=== PATIENT | male | born 1970 | race Caucasian/White ===

== ENCOUNTER 2017-05-21 22:38 | Inpatient (IN) | payer OTHER ==
--- NOTE | 2017-05-21 23:38 | HP ---
COWS - Scale Resting Pulse: 0= [place] 80 or Below Sweatin= Chills/Flushing Restless Observation: 1= Difficult to Sit Still Pupil Size: 0= Normal to Room Light Bone or Joint Aches: 2= Severe Diffuse Aches Runny Nose/ Eye Tearin= Runny Nose/Eyes GI Upset > 30mins: 2= Nausea/Diarrhea Tremor Observation: 2= Slight Tremor Visible Yawning Observation: 1= 1-2x During Session Anxiety or Irritability: 2=Irritable/Anxious Goose Flesh Skin: 0=Smooth Skin COWS Score: 13 CIWA Score - CIWA Score Nausea/Vomitin-Mild Nausea/No Vomiting Muscle Tremors: 4-Moderate,w/Arms Extend Anxiety: 4-Mod. Anxious/Guarded Agitation: 4-Moderately Restless Paroxysmal Sweats: 1-Minimal Palms Moist Orientation: 0-Oriented Tacttile Disturbances: 0-None Auditory Disturbances: 0-None Visual Disturbances: 0-None Headache: 0-None Present CIWA-Ar Total Score: 14 Admission [facility] - HPI Chief Complaint: withdrawal sx patient is on suboxone 8-2 mg tid x 3 years, last dose 05/18/17 Allergies/Adverse Reactions: Allergies Allergy/AdvReac Type Severity Reaction Status Date / Time No Known Allergies Allergy Verified 03/06/15 08:13 History of Present Illness: 47 years old male with long history of opiate klonopin nicotine dependence has hypertension, cellulitis of left hand treated with penicillin 500 mg tid x 10 days, 05/21/17 is 4th day, bipolar ii treated with gabapentin, paxil, is admitted to detox Exam Limitations: No Limitations - Ebola screening Have you traveled outside of the country in the last 21 days: No (N) Have you had contact with anyone from an Ebola affected area: No Do you have a fever: No - Review of Systems Constitutional: Changes in sleep, Weight Stable EENT: reports: No Symptoms Reported Respiratory: reports: No Symptoms reported Cardiac: reports: No Symptoms Reported GI: reports: Nausea, Poor Fluid Intake, Abdominal cramping : reports: No Symptoms Reported Musculoskeletal: reports: Back Pain, Joint Pain, Muscle Pain, Neck Pain Integumentary: reports: Change in Color, Erythema (left hand), Other ( cellulitits) Neuro: reports: Tremors Endocrine: reports: No Symptoms Reported Hematology: reports: No Symptoms Reported Psychiatric: reports: Judgement Intact, Orientated x3, Depressed Other Systems: Reviewed and Negative Patient History - Patient Medical History Hx Anemia: No Hx Asthma: No Hx Chronic Obstructive Pulmonary Disease (COPD): No Hx Cancer: No Hx Cardiac Disorders: No Hx Congestive Heart Failure: No Hx Hypertension: Yes Hx Hypercholesterolemia: Yes Hx Pacemaker: No HX Cerebrovascular Accident: No Hx Seizures: No Hx Dementia: No Hx Diabetes: No Hx Gastrointestinal Disorders: No Hx Liver Disease: No Hx Genitourinary Disorders: No Hx Sexually Transmitted Disorders: No Hx Renal Disease (ESRD): No Hx Thyroid Disease: No Hx Human Immunodeficiency Virus (HIV): No Hx Hepatitis C: Yes Hx Depression: No Hx Suicide Attempt: Yes (2014 over dose) Hx Bipolar Disorder: Yes Hx Schizophrenia: No - Patient Surgical History Past Surgical History: No - PPD History Previous Implant?: Yes Documented Results: Negative w/o proof Implanted On Prior [facility] Admission?: No PPD to be Administered?: Yes - Smoking Cessation Smoking history: Current every day smoker Have you smoked in the past 12 months: Yes Aproximately how many cigarettes per day: 15 Cigars Per Day: 0 Hx Chewing Tobacco Use: No Initiated information on smoking cessation: Yes 'Breaking Loose' booklet given: 05/21/17 - Substance & Tx. History Hx Alcohol Use: No Hx Substance Use: Yes Substance Use Type: Cocaine, Marijuana, Opiates, Tranquilizers Hx Substance Use Treatment: Yes (2015) - Substances Abused Heroin Route: Injection Frequency: Daily Amount used: 4 bags Age of first use: 15 Date of Last Use: 05/21/17 klonopin Route: Oral Frequency: Daily Amount used: 6 mg Age of first use: 31 Date of Last Use: 05/21/17 Family Disease History - Family Disease History Family Disease History: Heart Disease: Father (), Other: Father, Brother (no contact) Admission Physical Exam [facility] - Physical General Appearance: Yes: Nourished, Appropriately Dressed, Mild Distress, Tremorous, Irritable, Sweating, Anxious HEENTM: Yes: Hearing grossly Normal, Normal ENT Inspection, Normocephalic, Normal Voice Respiratory: Yes: Chest Non-Tender, Lungs Clear, Normal Breath Sounds, No Respiratory Distress, No Accessory Muscle Use Neck: Yes: Supple, Trachea in good position Breast: Yes: Breasts Symetrical Cardiology: Yes: Regular Rhythm, Regular Rate, S1, S2 Abdominal: Yes: Non Tender, Soft Genitourinary: Yes: Within Normal Limits Back: Yes: Normal Inspection Musculoskeletal: Yes: full range of Motion, Gait Steady, Back pain, Muscle Pain Extremities: Yes: Normal Range of Motion, Non-Tender, Tremors, Swelling (left hand) Neurological: Yes: Fully Oriented, Alert, Motor Strength 5/5, Normal Response, Depressed Affect Integumentary: Yes: Warm, Track Fox Lymphatic: Yes: Within Normal Limits - Diagnostic (1) Cannabis dependence, uncomplicated Current Visit: Yes Status: Chronic (2) Cocaine dependence, uncomplicated Current Visit: Yes Status: Chronic (3) Opioid dependence with withdrawal Current Visit: Yes Status: Acute (4) Sedative, hypnotic or anxiolytic dependence with withdrawal, uncomplicated Current Visit: Yes Status: Acute (5) Hypertension Current Visit: Yes Status: Chronic Qualifiers: Hypertension type: essential hypertension Qualified Code(s): I10 - Essential (primary) hypertension (6) Cellulitis Current Visit: Yes Status: Acute Qualifiers: Site of cellulitis: extremity Site of cellulitis of extremity: upper extremity Laterality: left Qualified Code(s): L03.114 - Cellulitis of left upper limb (7) Nicotine dependence Current Visit: Yes Status: Acute Qualifiers: Nicotine product type: cigarettes Substance use status: in withdrawal Qualified Code(s): F17.213 - Nicotine dependence, cigarettes, with withdrawal (8) Hepatitis C Current Visit: Yes Status: Chronic Qualifiers: Viral hepatitis chronicity: carrier Qualified Code(s): B18.2 - Chronic viral hepatitis C Cleared for Admission [facility] - Detox or Rehab [facility] Level of Care: Medically Managed Detox Regimen/Protocol: Methadone/Valium Vital Signs - Vital Signs Vital Signs Refused: No Temperature: 98.2 F Temperature Source: Oral Pulse Rate: 64 Respiratory Rate: 18 Blood Pressure: 104/68 BP Location: Left Arm Blood Pressure Position: Sitting - Height Height: 6 ft 1 in - Weight Weight: 192 lb Weight Measurement Method: Standing Scale Body Mass Index (BMI): 25.3 - Bowel Function Bowel Movement: Yes Urine Drug Screen - Control Is Test Valid: Yes - Results Drug Screen Negative: No Urine Drug Screen Results: THC-Marijuana, JULIA-Cocaine, BZO-Benzodiazepines, OXY- Oxycodone
[2017-05-21 23:54] VITALS: BMI 25.3
[2017-05-21] MEDS ORDERED: guaiFENesin/D-METHORPHAN HB 10 ML UNIT-DOSE CUPS PO PRN (23:59)
[2017-05-21] MEDS ORDERED: MAGNESIUM HYDROX 2400MG/30ML ORAL SUSPENSION 30 ML CUP PO PRN (23:59)
[2017-05-21] MEDS ORDERED: METHADONE HCL 10 MG TABLET (FOR DETOX USE ONLY) PO ONE (23:59)
[2017-05-21] MEDS ORDERED: diazePAM 5 MG TABLET PO PRN (23:59)
[2017-05-21] MEDS ORDERED: LOPERAMIDE HCL 2 MG CAPSULE PO PRN (23:59)
[2017-05-21] MEDS ORDERED: MAGNESIUM CITRATE 300 ML BOTTLE PO PRN (23:59)
[2017-05-21] MEDS ORDERED: P-EPHED 60MG/TRIPROLIDI 2.5MG TABLET PO PRN (23:59)
[2017-05-21] MEDS ORDERED: IBUPROFEN 400 MG TABLET (FP) PO PRN (23:59)
[2017-05-21] MEDS ORDERED: MENTHOL/PHENOL 1 EACH UD MM PRN (23:59)
[2017-05-21] MEDS ORDERED: diphenhydrAMINE HCL 50 MG CAPSULE PO PRN (23:59)
[2017-05-21] MEDS ORDERED: ACETAMINOPHEN 325 MG TABLET (FP) PO PRN (23:59)
[2017-05-21] MEDS ORDERED: MAG HYDROX/AL HYDROX/SIMETH 30 ML UNIT-DOSE CUP PO PRN (23:59)
[2017-05-21] MEDS ORDERED: diazePAM 5 MG TABLET PO ONE (23:59)
[2017-05-22] MEDS ORDERED: diazePAM 5 MG TABLET PO ONE (01:40)
[2017-05-22] MEDS ORDERED: METHADONE HCL 10 MG TABLET (FOR DETOX USE ONLY) PO ONE ×4 (01:40→23:00)
[2017-05-22] MEDS: PENICILLIN V POTASSIUM 500 MG TABLET PO SCH ×4 (02:00→23:03)
[2017-05-22] MEDS: diazePAM 5 MG TABLET PO SCH ×3 (06:00→22:24)
[2017-05-22] MEDS: GABAPENTIN 300 MG CAPSULE (FP) PO SCH ×3 (06:53→22:24)
--- NOTE | 2017-05-22 10:31 | PN ---
[facility] CIWA - CIWA Score Nausea/Vomitin Muscle Tremors: 3 Anxiety: 3 Agitation: 3 Paroxysmal Sweats: 1-Minimal Palms Moist Orientation: 0-Oriented Tacttile Disturbances: 1-Very Mild Itch/Numbness Auditory Disturbances: 1-Very Mild Visual Disturbances: 1-Very Mild Sensitivity Headache: 2-Mild CIWA-Ar Total Score: 18 [facility] COWS - Scale Resting Pulse: 0= [place] 80 or Below Sweatin= Chills/Flushing Restless Observation: 3= Extraneous Movement Pupil Size: 1= Pupils >than Normal Bone or Joint Aches: 2= Severe Diffuse Aches Runny Nose/ Eye Tearin= Runny Nose/Eyes GI Upset > 30mins: 2= Nausea/Diarrhea Tremor Observation of Outstretched Hands: 2= Slight Tremor Visible Yawning Observation: 1= 1-2x During Session Anxiety or Irritability: 2=Irritable/Anxious Goose Flesh Skin: 0=Smooth Skin COWS Score: 16 [facility] Progress Note (SOAP) Subjective: ALERT,IRRITABLE,ANXIOUS,INTERRUPTED SLEEP,TREMOR,PAIN IN THE BODY,TOOTH,REDNESS LEFT ELBOW Objective: 05/22/17 10:28 05/22/17 10:29 Vital Signs Temperature 97.1 F L 05/22/17 06:15 Pulse Rate 51 L 05/22/17 06:15 Respiratory Rate 16 05/22/17 06:15 Blood Pressure 106/57 05/22/17 06:15 O2 Sat by Pulse Oximetry (%) Assessment: 05/22/17 10:29 EKG SINUS BRADYCARDIA 47/MIN NO CHEST PAIN,NO SOB,NO DIZZINESS LABS PENDING Plan: WITHDRAWAL SYMPTOM,CONTINUE DETOX
[2017-05-22] MEDS: METOPROLOL TARTRATE 50 MG TABLET (FP) PO SCH ×2 (10:41→22:24)
[2017-05-22] MEDS: PRENATAL VITAMINS W/ FOLIC ACID TABLET (FP) PO SCH (10:41)
[2017-05-22] MEDS: diazePAM 5 MG TABLET PO PRN ×2 (10:42→17:26)
[2017-05-22] MEDS: NICOTINE 21 MG/24 HOURS TOPICAL PATCH TD SCH (10:42)
[2017-05-22 15:11] LABS: URINE APPEARANCE SLCLOUDY; URINE BILIRUBIN NEGATIVE (NEGATIVE); URINE BLOOD NEGATIVE (NEGATIVE); URINE COLOR DKYELLOW; URINE GLUCOSE (UA) NEGATIVE (NEGATIVE); URINE KETONE NEGATIVE (NEGATIVE); URINE LEUK ESTERASE NEGATIVE (NEGATIVE); URINE NITRITE NEGATIVE (NEGATIVE); URINE PROTEIN NEGATIVE (NEGATIVE); URINE UROBILINOGEN 4.0 E.U/dl mg/dL (0.2-1.0)
--- NOTE | 2017-05-22 15:11 | CONSULT ---
[facility] Psychiatric Consult - Data Date of interview: 05/22/17 Admission source: [facility] Identifying data: Patient is approached,TWICE,at bedside for psychiatric interview.He refused.
[2017-05-22] MEDS: NICOTINE POLACRILEX 4 MG GUM BUC PRN (17:27)
--- NOTE | 2017-05-22 20:01 | EKG ---
Test Reason : Blood Pressure : / mmHG Vent. Rate : 047 BPM Atrial Rate : 047 BPM P-R Int : 168 ms QRS Dur : 096 ms QT Int : 422 ms P-R-T Axes : 059 039 039 degrees QTc Int : 373 ms SINUS BRADYCARDIA OTHERWISE NORMAL ECG WHEN COMPARED WITH ECG OF 23-APR-2011 13:39, VENT. RATE HAS DECREASED BY 24 BPM Confirmed by PADDY ELDRIDGE MD ([id number]) on 05/22/2017 8:00:38 PM Referred By: Confirmed By:PADDY ELDRIDGE MD
[2017-05-22] MEDS ORDERED: diazePAM 5 MG TABLET PO SCH (22:00)
[2017-05-22] MEDS: THIAMINE HCL 100 MG TABLET (FP) PO SCH (22:24)
[2017-05-22] MEDS: SULFAMETHOXAZOLE/TRIMETHOPRIM 800MG/160MG D.S. TABLET PO SCH (22:24)
[2017-05-23] MEDS: diazePAM 5 MG TABLET PO SCH ×3 (06:54→21:56)
[2017-05-23] MEDS: PENICILLIN V POTASSIUM 500 MG TABLET PO SCH ×3 (06:54→21:56)
[2017-05-23] MEDS: GABAPENTIN 300 MG CAPSULE (FP) PO SCH ×3 (06:54→21:55)
--- NOTE | 2017-05-23 09:25 | CONSULT ---
[facility] Psychiatric Consult - Data Date of interview: 05/23/17 Admission source: [facility] Identifying data: This is 47 years old male with no psychiatirc hospitalization history intoxicated with: Opiopids, Cannabis, Cocaine, Xanax and Nicotine Substance Abuse History: - Smoking Cessation. Smoking history: Current every day smoker. Have you smoked in the past 12 months: Yes. Aproximately how many cigarettes per day: 20. Cigars Per Day: 0. Hx Chewing Tobacco Use: No. Initiated information on smoking cessation: Yes. 'Breaking Loose' booklet given : 05/22/17. - Substance & Tx. History. Hx Alcohol Use: Yes. Hx Substance Use : Yes. Substance Use Type: Alcohol, Cocaine. Hx Substance Use Treatment: No. - Substances Abused. Alcohol. Route: Oral. Frequency: Daily. Amount used : vodka 2 pints, beer 2 of 40 oz. Age of first use: 31. Date of Last Use: . Cocaine. Route: Smoking. Frequency: Daily. Amount used: $100. Age of first use: 26. Date of Last Use: 05/21/17 Medical History: Cellulitis history, HepC+, HTN, Psychiatric History: pATIENTY REPORTS HIOSTORY OF DEPRESSION, REPORTS TAKING PRIOR TO ADMISSION: Paxil 10mg POQD Physical/Sexual Abuse/Trauma History: Denies Additional Comment: Paxil 10mg POQD Mental Status Exam - Mental Status Exam Alert and Oriented to: Person Cognitive Function: Fair Patient Appearance: Unkempt Mood: Sad Affect: Flat Patient Behavior: Sedated Speech Pattern: Delayed Voice Loudness: Mildly Soft/Quiet Thought Process: Circumstantial Thought Disorder: Being Controlled Hallucinations: Denies Suicidal Ideation: Denies Homicidal Ideation: Denies Insight/Judgement: Fair Sleep: Difficulty falling asleep Appetite: Fair Muscle strength/Tone: Mild Hypotonicity Gait/Station: Shuffling Additional Comments: Paxil 10mg POQD Psychiatric Findings - Problem List ([place] 1, 2,3) (1) Nicotine dependence Current Visit: Yes Status: Acute Qualifiers: Nicotine product type: cigarettes Substance use status: in withdrawal Qualified Code(s): F17.213 - Nicotine dependence, cigarettes, with withdrawal (2) Opioid dependence with withdrawal Current Visit: Yes Status: Acute (3) Sedative, hypnotic or anxiolytic dependence with withdrawal, uncomplicated Current Visit: Yes Status: Acute (4) Cannabis dependence, uncomplicated Current Visit: Yes Status: Chronic (5) Cocaine dependence, uncomplicated Current Visit: Yes Status: Chronic (6) Drug-induced mood disorder Current Visit: Yes Status: Acute - Initial Treatment Plan Initial Treatment Plan: Paxil 10mg POQD
[2017-05-23] MEDS: diazePAM 5 MG TABLET PO PRN ×2 (09:30→17:51)
[2017-05-23 09:49] LABS: MCH 29.5 pg (25.7-33.7); MCHC 33.8 g/dl (32.0-35.9); MEAN CELL VOLUME 87.3 fl (80-96); PLATELET COUNT 186 K/MM3 (134-434); RDW 14.1 % (11.9-15.9); WHITE BLOOD COUNT 7.1 K/mm3 (4.0-10.0)
[2017-05-23] MEDS ORDERED: METHADONE HCL 10 MG TABLET (FOR DETOX USE ONLY) PO SCH ×2 (10:00)
[2017-05-23] MEDS: METOPROLOL TARTRATE 50 MG TABLET (FP) PO SCH ×2 (11:01→21:56)
[2017-05-23] MEDS: PARoxetine HCL 10 MG TABLET (FP) PO SCH (11:01)
[2017-05-23] MEDS: SULFAMETHOXAZOLE/TRIMETHOPRIM 800MG/160MG D.S. TABLET PO SCH ×2 (11:01→21:56)
[2017-05-23] MEDS: PRENATAL VITAMINS W/ FOLIC ACID TABLET (FP) PO SCH (11:01)
[2017-05-23] MEDS: NICOTINE 21 MG/24 HOURS TOPICAL PATCH TD SCH (11:01)
[2017-05-23] MEDS: NICOTINE POLACRILEX 4 MG GUM BUC PRN ×2 (11:02→17:53)
[2017-05-23 11:11] LABS: ALBUMIN 3.3 g/dl (3.4-5.0); ALK PHOS 72 U/L (45-117); ANION GAP 6 (8-16); BILIRUBIN,TOTAL 0.4 mg/dL (0.2-1.0); CALCIUM 9.1 mg/dL (8.5-10.1); CO2 28 mmol/L (21-32); CREATININE 0.7 mg/dL (0.7-1.3); GLUCOSE,RANDOM 90 mg/dL (74-106); SGOT/AST 19 U/L (15-37); SGPT/ALT 30 U/L (12-78); TOT PROT 6.6 g/dl (6.4-8.2)
--- NOTE | 2017-05-23 12:04 | PN ---
[facility] CIWA - CIWA Score Nausea/Vomitin Muscle Tremors: 3 Anxiety: 3 Agitation: 2 Paroxysmal Sweats: 1-Minimal Palms Moist Orientation: 0-Oriented Tacttile Disturbances: 1-Very Mild Itch/Numbness Auditory Disturbances: 1-Very Mild Visual Disturbances: 1-Very Mild Sensitivity Headache: 2-Mild CIWA-Ar Total Score: 17 [facility] COWS - Scale Resting Pulse: 0= [place] 80 or Below Sweatin= Chills/Flushing Restless Observation: 3= Extraneous Movement Pupil Size: 1= Pupils >than Normal Bone or Joint Aches: 2= Severe Diffuse Aches Runny Nose/ Eye Tearin= Runny Nose/Eyes GI Upset > 30mins: 2= Nausea/Diarrhea Tremor Observation of Outstretched Hands: 2= Slight Tremor Visible Yawning Observation: 1= 1-2x During Session Anxiety or Irritability: 2=Irritable/Anxious Goose Flesh Skin: 0=Smooth Skin COWS Score: 16 S Progress Note (SOAP) Subjective: ALERT,IRRITABLE,ANXIOUS,INTERRUPTED SLEEP,TREMOR,PAIN IN THE BODY AND BACK Objective: 05/23/17 12:03 Vital Signs Temperature 97.7 F 05/23/17 10:21 Pulse Rate 63 05/23/17 10:21 Respiratory Rate 18 05/23/17 10:21 Blood Pressure 124/83 05/23/17 10:21 O2 Sat by Pulse Oximetry (%) Assessment: 05/23/17 12:03 WITHDRAWAL SYMPTOM Plan: CONTINUE DETOX
[2017-05-23] MEDS: THIAMINE HCL 100 MG TABLET (FP) PO SCH (21:56)
[2017-05-24] MEDS: diazePAM 5 MG TABLET PO PRN ×3 (05:27→18:49)
[2017-05-24] MEDS: GABAPENTIN 300 MG CAPSULE (FP) PO SCH ×3 (05:27→21:59)
[2017-05-24] MEDS: PENICILLIN V POTASSIUM 500 MG TABLET PO SCH ×3 (05:27→21:59)
[2017-05-24] MEDS ORDERED: METHADONE HCL 5 MG TABLET (FOR DETOX USE ONLY) PO SCH (10:00)
[2017-05-24] MEDS ORDERED: diazePAM 5 MG TABLET PO SCH (10:00)
[2017-05-24] MEDS: diazePAM 5 MG TABLET PO SCH ×2 (10:14→21:59)
[2017-05-24] MEDS: NICOTINE 21 MG/24 HOURS TOPICAL PATCH TD SCH (10:15)
[2017-05-24] MEDS: SULFAMETHOXAZOLE/TRIMETHOPRIM 800MG/160MG D.S. TABLET PO SCH ×2 (10:15→21:59)
[2017-05-24] MEDS: METHADONE HCL 5 MG TABLET (FOR DETOX USE ONLY) PO SCH (10:15)
[2017-05-24] MEDS: PARoxetine HCL 10 MG TABLET (FP) PO SCH (10:15)
[2017-05-24] MEDS: PRENATAL VITAMINS W/ FOLIC ACID TABLET (FP) PO SCH (10:15)
[2017-05-24] MEDS: METOPROLOL TARTRATE 50 MG TABLET (FP) PO SCH ×2 (10:15→21:59)
--- NOTE | 2017-05-24 10:49 | PN ---
S Progress Note (SOAP) Subjective: ALERT,IRRITABLE,ANXIOUS,INTERRUPTED SLEEP,TREMOR Objective: 05/24/17 10:47 Vital Signs Temperature 98.1 F 05/24/17 10:00 Pulse Rate 53 L 05/24/17 10:00 Respiratory Rate 18 05/24/17 10:00 Blood Pressure 129/86 05/24/17 10:00 O2 Sat by Pulse Oximetry (%) 05/24/17 10:47 Laboratory Last Values WBC 7.1 K/mm3 (4.0-10.0) 05/23/17 07:00 RBC 4.97 M/mm3 (4.00-5.60) 05/23/17 07:00 Hgb 14.7 GM/dL (11.7-16.9) 05/23/17 07:00 Hct 43.4 % (35.4-49) 05/23/17 07:00 MCV 87.3 fl (80-96) 05/23/17 07:00 MCH 29.5 pg (25.7-33.7) 05/23/17 07:00 MCHC 33.8 g/dl (32.0-35.9) 05/23/17 07:00 RDW 14.1 % (11.9-15.9) 05/23/17 07:00 Plt Count 186 K/MM3 (134-434) 05/23/17 07:00 MPV 10.0 fl (7.5-11.1) 05/23/17 07:00 Sodium 142 mmol/L (136-145) 05/23/17 07:00 Potassium 4.3 mmol/L (3.5-5.1) 05/23/17 07:00 Chloride 108 mmol/L (98-107) H 05/23/17 07:00 Carbon Dioxide 28 mmol/L (21-32) 05/23/17 07:00 Anion Gap 6 (8-16) L 05/23/17 07:00 BUN 9 mg/dL (7-18) 05/23/17 07:00 Creatinine 0.7 mg/dL (0.7-1.3) 05/23/17 07:00 Creat Clearance w eGFR > 60 (>60) 05/23/17 07:00 Random Glucose 90 mg/dL (74-106) 05/23/17 07:00 Calcium 9.1 mg/dL (8.5-10.1) 05/23/17 07:00 Total Bilirubin 0.4 mg/dL (0.2-1.0) 05/23/17 07:00 AST 19 U/L (15-37) 05/23/17 07:00 ALT 30 U/L (12-78) 05/23/17 07:00 Alkaline Phosphatase 72 U/L (45-117) 05/23/17 07:00 Total Protein 6.6 g/dl (6.4-8.2) 05/23/17 07:00 Albumin 3.3 g/dl (3.4-5.0) L 05/23/17 07:00 Urine Color Dkyellow 05/22/17 11:15 Urine Appearance Slcloudy 05/22/17 11:15 Urine pH 5.0 (5.0-8.0) 05/22/17 11:15 Ur Specific [place] 1.020 (1.005-1.025) 05/22/17 11:15 Urine Protein Negative (NEGATIVE) 05/22/17 11:15 Urine Glucose (UA) Negative (NEGATIVE) 05/22/17 11:15 Urine Ketones Negative (NEGATIVE) 05/22/17 11:15 Urine Blood Negative (NEGATIVE) 05/22/17 11:15 Urine Nitrite Negative (NEGATIVE) 05/22/17 11:15 Urine Bilirubin Negative (NEGATIVE) 05/22/17 11:15 Urine Urobilinogen 4.0 e.u/dl mg/dL (0.2-1.0) 05/22/17 11:15 Ur Leukocyte Esterase Negative (NEGATIVE) 05/22/17 11:15 RPR Titer Nonreactive (NONREACTIVE) 05/23/17 07:00 Assessment: 05/24/17 10:47 WITHDRAWAL SYMPTOM Plan: CONTINUE DETOX
[2017-05-24] MEDS: NICOTINE POLACRILEX 4 MG GUM BUC PRN (12:31)
[2017-05-24] MEDS: THIAMINE HCL 100 MG TABLET (FP) PO SCH (21:59)
[2017-05-25] MEDS: GABAPENTIN 300 MG CAPSULE (FP) PO SCH (05:28)
[2017-05-25] MEDS: PENICILLIN V POTASSIUM 500 MG TABLET PO SCH (07:35)
--- NOTE | 2017-05-25 08:31 | PN ---
[facility] Progress Note (SOAP) Subjective: ALERT,IRRITABLE,ANXIOUS,INTERRUPTED SLEEP,PAIN IN THE BODY Objective: 05/25/17 08:30 Vital Signs Temperature 97.9 F 05/25/17 06:48 Pulse Rate 53 L 05/25/17 06:48 Respiratory Rate 16 05/25/17 06:48 Blood Pressure 113/51 05/25/17 06:48 O2 Sat by Pulse Oximetry (%) Assessment: 05/25/17 08:30 WITHDRAWAL SYMPTOM Plan: CONTINUE DETOX
--- NOTE | 2017-05-25 08:33 | PN ---
[facility] Progress Note Note: PATIENT DID NOT WANT TO COMPLETE TREATMENT DUE TO PERSONAL PROBLEM,SEEN BY COUNSELOR,GUILLAUME BAUTISTA
--- NOTE | 2017-05-25 08:39 | DS ---
[facility] Detox Discharge Summary Admission Date: 05/21/17 Discharge Date: 05/25/17 - History Present History: Cannabis Dependence, Cocaine Dependence, Opioid Dependence, Sedative Dependence Additional Comments: PATIENT DID NOT WANT TO COMPLETE TREATMENT DUE TO PERSONAL PROBLEM,SIGNED RELEASE AMA,SEEN BY COUNSELOR HAS MEDICATIONS AT HOME Pertinent Past History: HYPERTENSION CELLULITIS LEFT ELBOW NICOTINE DEPENDENCE DENTAL CAVITY - Physical Exam Results Vital Signs: Vital Signs Temperature 97.9 F 05/25/17 06:48 Pulse Rate 53 L 05/25/17 06:48 Respiratory Rate 16 05/25/17 06:48 Blood Pressure 113/51 05/25/17 06:48 O2 Sat by Pulse Oximetry (%) Pertinent Admission Physical Exam Findings: WITHDRAWAL SYMPTOM - Medication Discharge Medications: Ambulatory Orders Paroxetine HCl [Paxil] 10 mg PO DAILY 03/06/15 Metoprolol ER-Hctz 25-12.5 mg 50 mg PO BID 09/28/16 Paroxetine HCl [Paxil -] 10 mg PO DAILY #30 tablet 05/23/17 - Diagnosis (1) Cellulitis Current Visit: Yes Status: Acute Qualifiers: Site of cellulitis: extremity Site of cellulitis of extremity: upper extremity Laterality: left Qualified Code(s): L03.114 - Cellulitis of left upper limb (2) Drug-induced mood disorder Current Visit: Yes Status: Acute (3) Nicotine dependence Current Visit: Yes Status: Acute Qualifiers: Nicotine product type: cigarettes Substance use status: in withdrawal Qualified Code(s): F17.213 - Nicotine dependence, cigarettes, with withdrawal (4) Opioid dependence with withdrawal Current Visit: Yes Status: Acute (5) Sedative, hypnotic or anxiolytic dependence with withdrawal, uncomplicated Current Visit: Yes Status: Acute (6) Cannabis dependence, uncomplicated Current Visit: Yes Status: Chronic (7) Cocaine dependence, uncomplicated Current Visit: Yes Status: Chronic (8) Hepatitis C Current Visit: Yes Status: Chronic Qualifiers: Viral hepatitis chronicity: carrier Qualified Code(s): B18.2 - Chronic viral hepatitis C (9) Hypertension Current Visit: Yes Status: Chronic Qualifiers: Hypertension type: essential hypertension Qualified Code(s): I10 - Essential (primary) hypertension (10) Toothache Current Visit: No Status: Acute (11) Dental cavity Current Visit: Yes Status: Acute - AMA Did Patient Leave Against Medical Advice: Yes
[2017-05-25] MEDS: METHADONE HCL 5 MG TABLET (FOR DETOX USE ONLY) PO SCH (09:12)
[2017-05-25] MEDS: SULFAMETHOXAZOLE/TRIMETHOPRIM 800MG/160MG D.S. TABLET PO SCH (09:13)
[2017-05-25] MEDS: diazePAM 5 MG TABLET PO SCH (09:13)
[2017-05-25] MEDS: PARoxetine HCL 10 MG TABLET (FP) PO SCH (09:13)
[2017-05-25] MEDS: PRENATAL VITAMINS W/ FOLIC ACID TABLET (FP) PO SCH (09:13)
[2017-05-25] MEDS: METOPROLOL TARTRATE 50 MG TABLET (FP) PO SCH (09:13)
[2017-05-25 09:54] VITALS: BP 135/77; PULSE 69; TEMP 98.2
[2017-05-26] MEDS ORDERED: diazePAM 5 MG TABLET PO SCH ×2 (10:00)
[2017-05-26] MEDS ORDERED: METHADONE HCL 10 MG TABLET (FOR DETOX USE ONLY) PO SCH ×2 (10:00)
[2017-05-27] MEDS ORDERED: METHADONE HCL 5 MG TABLET (FOR DETOX USE ONLY) PO SCH ×2 (06:00)
== END 2017-05-25 09:17 | disposition left against medical advice (07) | DRG 770 ==
LOC: YASAS 22:38 → Y6N 23:57
PROVIDERS: ADMIT Internal Medicine; ATTEND Internal Medicine
PROC: HZ2ZZZZ Detoxification Services for Substance Abuse Treatment (ICD-10-PCS; principal; 2017-05-21)
DX: F11.23 Opioid dependence with withdrawal (principal); F13.230 Sedative, hypnotic or anxiolytic dependence with withdrawal, uncomplicated; F14.20 Cocaine dependence, uncomplicated; F12.20 Cannabis dependence, uncomplicated; F17.213 Nicotine dependence, cigarettes, with withdrawal; F19.24 Other psychoactive substance dependence with psychoactive substance-induced mood disorder; E78.00 Pure hypercholesterolemia, unspecified; L03.114 Cellulitis of left upper limb; B18.2 Chronic viral hepatitis C; I10 Essential (primary) hypertension; K08.89 Other specified disorders of teeth and supporting structures; K02.9 Dental caries, unspecified; R00.1 Bradycardia, unspecified; Z91.5 Personal history of self-harm
CPT/HCPCS: 36415; 80053; 81003; 85027; 86593; 93005; 93010

== ENCOUNTER 2018-02-09 14:12 | Inpatient (IN) | payer OTHER ==
[2018-02-09 16:43] VITALS: BMI 25.0
--- NOTE | 2018-02-09 19:19 | HP ---
COWS - Scale Resting Pulse: 0= [place] 80 or Below Sweatin=Flushed/Facial Moisture Restless Observation: 1= Difficult to Sit Still Pupil Size: 0= Normal to Room Light Bone or Joint Aches: 1= Mild Discomfort Runny Nose/ Eye Tearin= Nasal Congestion GI Upset > 30mins: 1= Stomach Cramp Tremor Observation: 2= Slight Tremor Visible Yawning Observation: 1= 1-2x During Session Anxiety or Irritability: 1=Feels Anxious/Irritable Goose Flesh Skin: 3=Piloerection COWS Score: 13 Admission ROS S - HPI Chief Complaint: I need help with Heroin Allergies/Adverse Reactions: Allergies Allergy/AdvReac Type Severity Reaction Status Date / Time No Known Allergies Allergy Verified 02/09/18 17:20 History of Present Illness: Pt with a 15 year hx of heroin use presents here today for heroin detox. Pt is known to [facility] with his last visit late last year. Last used about 5am today. States he had "a very bad overdose where I wasn't breathing" x 1 week ago. Hx of HTN, Hep C, major depressive d/o, Social anxiety Exam Limitations: No Limitations - Ebola screening Have you traveled outside of the country in the last 21 days: No (N) Have you had contact with anyone from an Ebola affected area: No Have you been sick,other than usual withdrawal symptoms: No Do you have a fever: No - Review of Systems Constitutional: Unintentional Wgt. Loss EENT: reports: Nose Congestion Respiratory: reports: No Symptoms reported Cardiac: reports: No Symptoms Reported GI: reports: Other (abd cramping) : reports: No Symptoms Reported Musculoskeletal: reports: Back Pain (chronic) Integumentary: reports: No Symptoms Reported Neuro: reports: Seizure (years ago) Endocrine: reports: No Symptoms Reported Hematology: reports: No Symptoms Reported Psychiatric: reports: Mood/Affect Appropiate, Orientated x3, Agitated, Anxious Other Systems: Reviewed and Negative Patient History - Patient Medical History Hx Anemia: No Hx Asthma: No Hx Chronic Obstructive Pulmonary Disease (COPD): No Hx Cancer: No Hx Cardiac Disorders: No Hx Congestive Heart Failure: No Hx Hypertension: Yes (On [place]) Hx Hypercholesterolemia: Yes Hx Pacemaker: No HX Cerebrovascular Accident: No Hx Seizures: Yes (Years ago) Hx Dementia: No Hx Diabetes: No Hx Gastrointestinal Disorders: No Hx Liver Disease: No Hx Genitourinary Disorders: No Hx Sexually Transmitted Disorders: No Hx Renal Disease (ESRD): No Hx Thyroid Disease: No Hx Human Immunodeficiency Virus (HIV): No (Negative, Last tested 7 months ago) Hx Hepatitis C: Yes (Not treated) Hx Depression: Yes (On Paxil) Hx Suicide Attempt: No (current SI) Hx Bipolar Disorder: Yes Hx Schizophrenia: No - Patient Surgical History Past Surgical History: Yes Hx Cataract Extraction: No Hx Cardiac Surgery: No Hx Lung Surgery: No Hx Breast Surgery: No Hx Breast Biopsy: No Hx Abdominal Surgery: No Hx Appendectomy: No Hx Cholecystectomy: No Hx Genitourinary Surgery: No Hx Section: No Hx Orthopedic Surgery: No Hx Hysterectomy: No Other Surgical History: WOUND debriding AFTER DOG BITE x 1 yr ago Anesthesia Reaction: No - PPD History Previous Implant?: Yes Documented Results: Negative w/proof Implanted On Prior [facility] Admission?: Yes Date: 05/24/17 PPD to be Administered?: No - Reproductive History Patient is a Female of Child Bearing Age (11 -55 yrs old): No - Smoking Cessation Smoking history: Current every day smoker Have you smoked in the past 12 months: Yes Aproximately how many cigarettes per day: 20 Cigars Per Day: 0 Hx Chewing Tobacco Use: No Initiated information on smoking cessation: Yes 'Breaking Loose' booklet given: 02/09/18 - Substance & Tx. History Hx Alcohol Use: Yes (Many years ago) Hx Substance Use: Yes (heroin , cocaine) Substance Use Type: Cocaine - Substances Abused Heroin Route: Injection Frequency: Daily Amount used: 5 bags Age of first use: 31 Date of Last Use: 02/09/18 Cocaine Route: Smoking Frequency: 1-3 times last 30 days Amount used: $30-40 Age of first use: 26 Date of Last Use: 02/08/18 Marijuana/Hashish Route: Smoking Frequency: 1-2 times per week Amount used: one blunt Age of first use: 19 Date of Last Use: 02/06/18 Family Disease History - Family Disease History Family Disease History: Heart Disease: Father (, HTN), Other: Father, Mother (no med hx), Brother (no contact) Admission Physical Exam [facility] - Vital Signs Vital Signs: Vital Signs - 24 hr 05/06/18 16:41 Temperature 98.5 F Pulse Rate 49 L Respiratory 21 Rate Blood Pressure 174/97 - Physical General Appearance: Yes: Moderate Distress HEENTM: Yes: Nasal Congestion Respiratory: Yes: Lungs Clear, Normal Breath Sounds, No Respiratory Distress Neck: Yes: No masses,lesions,Nodules, Trachea in good position Breast: Yes: Breast Exam Deferred Cardiology: Yes: Bradycardia (Denies any symptom), Diastolic Murmur Abdominal: Yes: Normal Bowel Sounds, Soft, Distended Genitourinary: Yes: Within Normal Limits Back: Yes: Normal Inspection Musculoskeletal: Yes: full range of Motion Extremities: Yes: Within Normal Limits Neurological: Yes: Fully Oriented, Alert, Motor Strength 5/5 Integumentary: Yes: Track Howard (R and L antecubital areas) - Diagnostic (1) Opioid dependence with uncomplicated intoxication Current Visit: Yes Status: Acute (2) Nicotine dependence, uncomplicated Current Visit: Yes Status: Chronic (3) Cannabis dependence, uncomplicated Current Visit: Yes Status: Chronic (4) Track howard due to intravenous drug abuse Current Visit: Yes Status: Chronic (5) Cocaine dependence, uncomplicated Current Visit: Yes Status: Chronic (6) Hepatitis C Current Visit: Yes Status: Chronic Qualifiers: Viral hepatitis chronicity: carrier Qualified Code(s): B18.2 - Chronic viral hepatitis C (7) Hypertension Current Visit: Yes Status: Chronic Qualifiers: Hypertension type: essential hypertension Qualified Code(s): I10 - Essential (primary) hypertension Cleared for Admission [facility] - Detox or Rehab [facility] Level of Care: Medically Managed Detox Regimen/Protocol: Methadone [facility] Breath Alcohol Content Breath Alcohol Content: 0 Urine Drug Screen - Results Drug Screen Negative: No Urine Drug Screen Results: THC-Marijuana, JULIA-Cocaine, OPI-Opiates
[2018-02-09] MEDS ORDERED: MAGNESIUM HYDROX 2400MG/30ML ORAL SUSPENSION 30 ML CUP PO PRN (19:36)
[2018-02-09] MEDS ORDERED: MAG HYDROX/AL HYDROX/SIMETH 30 ML UNIT-DOSE CUP PO PRN (19:36)
[2018-02-09] MEDS ORDERED: NICOTINE POLACRILEX 2 MG GUM BUC PRN (19:36)
[2018-02-09] MEDS ORDERED: MENTHOL/PHENOL 1 EACH UD MM PRN (19:36)
[2018-02-09] MEDS ORDERED: LOPERAMIDE HCL 2 MG CAPSULE PO PRN (19:36)
[2018-02-09] MEDS ORDERED: MAGNESIUM CITRATE 300 ML BOTTLE PO PRN (19:36)
[2018-02-09] MEDS ORDERED: P-EPHED 60MG/TRIPROLIDI 2.5MG TABLET PO PRN (19:36)
[2018-02-09] MEDS ORDERED: ACETAMINOPHEN 325 MG TABLET (FP) PO PRN (19:36)
[2018-02-09] MEDS ORDERED: guaiFENesin/D-METHORPHAN HB 10 ML UNIT-DOSE CUPS PO PRN (19:36)
[2018-02-09] MEDS ORDERED: IBUPROFEN 400 MG TABLET (FP) PO PRN (19:36)
[2018-02-09] MEDS ORDERED: METHADONE HCL 10 MG TABLET (FOR DETOX USE ONLY) PO ONE ×2 (19:45→23:00)
--- NOTE | 2018-02-09 19:50 | PN ---
S Progress Note Note: repeat Bp - 193/84 @ this time. Pt denies Headache, chest pains, dizziness, light headedness nor other complaints. Says his BP is high because it is close to "my 2nd dose of medication". Metoprolol 50mg STAT dose ordered, and to continue as scheduled from tomorrow, Nurse Odalis campos aware. Pt's monitoring will continue Nursing will monitor pt
[2018-02-09] MEDS ORDERED: METOPROLOL TARTRATE 50 MG TABLET (FP) PO ONE (20:00)
[2018-02-09] MEDS: diazePAM 5 MG TABLET PO PRN (20:28)
[2018-02-09] MEDS: NICOTINE 21 MG/24 HOURS TOPICAL PATCH TD SCH (20:29)
[2018-02-09] MEDS ORDERED: METOPROLOL TARTRATE 50 MG TABLET (FP) PO SCH (22:00)
[2018-02-09] MEDS: THIAMINE HCL 100 MG TABLET (FP) PO SCH (22:25)
[2018-02-09] MEDS: BACITRACIN 15 GM TUBE TOPICAL OINTMENT TP SCH (22:27)
[2018-02-09 22:52] LABS: URINE APPEARANCE SLCLOUDY; URINE BILIRUBIN NEGATIVE (<2.0 mg/dL); URINE COLOR DKYELLOW; URINE GLUCOSE (UA) NEGATIVE (NEGATIVE); URINE KETONE NEGATIVE (NEGATIVE); URINE LEUK ESTERASE NEGATIVE (NEGATIVE); URINE NITRITE NEGATIVE (NEGATIVE); URINE PROTEIN NEGATIVE (NEGATIVE)
[2018-02-10] MEDS: diazePAM 5 MG TABLET PO PRN ×5 (05:25→22:27)
[2018-02-10 09:38] LABS: HEMATOCRIT 39.2 % (35.4-49); HEMOGLOBIN 13.4 GM/dL (11.7-16.9); MCH 30.1 pg (25.7-33.7); MCHC 34.1 g/dl (32.0-35.9); MEAN CELL VOLUME 88.3 fl (80-96); MEAN PLT VOLUME 9.8 fl (7.5-11.1); PLATELET COUNT 149 K/MM3 (134-434); RBC 4.44 M/mm3 (4.00-5.60); RDW 13.8 % (11.9-15.9); WHITE BLOOD COUNT 5.6 K/mm3 (4.0-10.0)
[2018-02-10 09:48] LABS: ALBUMIN 3.1 g/dl (3.4-5.0); ALK PHOS 80 U/L (45-117); ANION GAP 2 (8-16); BILIRUBIN,TOTAL 0.5 mg/dL (0.2-1.0); BLOOD UREA NITROGEN 14 mg/dL (7-18); CALCIUM 8.3 mg/dL (8.5-10.1); CHLORIDE 110 mmol/L (98-107); CO2 31 mmol/L (21-32); CREATININE 0.7 mg/dL (0.7-1.3); GLUCOSE,RANDOM 91 mg/dL (74-106); POTASSIUM 4.4 mmol/L (3.5-5.1); SGOT/AST 19 U/L (15-37); SGPT/ALT 19 U/L (12-78); SODIUM 143 mmol/L (136-145); TOT PROT 6.3 g/dl (6.4-8.2)
[2018-02-10] MEDS ORDERED: METHADONE HCL 10 MG TABLET (FOR DETOX USE ONLY) PO ONE (10:00)
[2018-02-10] MEDS: METOPROLOL TARTRATE 50 MG TABLET (FP) PO SCH ×2 (10:29→22:19)
[2018-02-10] MEDS: PRENATAL VITAMINS W/ FOLIC ACID TABLET (FP) PO SCH (10:30)
[2018-02-10] MEDS: NICOTINE 21 MG/24 HOURS TOPICAL PATCH TD SCH (10:31)
[2018-02-10] MEDS: BACITRACIN 15 GM TUBE TOPICAL OINTMENT TP SCH ×2 (10:32→22:19)
--- NOTE | 2018-02-10 10:47 | EKG ---
Test Reason : Blood Pressure : / mmHG Vent. Rate : 052 BPM Atrial Rate : 052 BPM P-R Int : 146 ms QRS Dur : 084 ms QT Int : 422 ms P-R-T Axes : 043 045 040 degrees QTc Int : 392 ms SINUS BRADYCARDIA OTHERWISE NORMAL ECG WHEN COMPARED WITH ECG OF 22-MAY-2017 00:02, NO SIGNIFICANT CHANGE WAS FOUND Confirmed by MIO WOLF MD ([id number]) on 02/10/2018 10:46:41 AM Referred By: Confirmed By:MIO WOLF MD
--- NOTE | 2018-02-10 11:13 | PN ---
S CIWA - CIWA Score Nausea/Vomitin Muscle Tremors: 3 Anxiety: 3 Agitation: 2 Paroxysmal Sweats: 1-Minimal Palms Moist Orientation: 0-Oriented Tacttile Disturbances: 1-Very Mild Itch/Numbness Auditory Disturbances: 1-Very Mild Visual Disturbances: 0-None Headache: 2-Mild CIWA-Ar Total Score: 16 S Progress Note (SOAP) Subjective: ALERT,IRRITABLE,ANXIOUS,INTERRUPTED SLEEP,TREMOR Objective: 02/10/18 11:09 Vital Signs Temperature 98.2 F 02/10/18 10:13 Pulse Rate 59 L 02/10/18 10:13 Respiratory Rate 20 02/10/18 10:13 Blood Pressure 128/73 02/10/18 10:13 O2 Sat by Pulse Oximetry (%) EKG SINUS BRADYCARDIA 52/MIN,QT322/392 NO CHEST PAIN,NO SOB,NO DIZZINESS Laboratory Last Values WBC 5.6 K/mm3 (4.0-10.0) 02/10/18 07:00 RBC 4.44 M/mm3 (4.00-5.60) 02/10/18 07:00 Hgb 13.4 GM/dL (11.7-16.9) 02/10/18 07:00 Hct 39.2 % (35.4-49) 02/10/18 07:00 MCV 88.3 fl (80-96) 02/10/18 07:00 MCH 30.1 pg (25.7-33.7) 02/10/18 07:00 MCHC 34.1 g/dl (32.0-35.9) 02/10/18 07:00 RDW 13.8 % (11.9-15.9) 02/10/18 07:00 Plt Count 149 K/MM3 (134-434) 02/10/18 07:00 MPV 9.8 fl (7.5-11.1) 02/10/18 07:00 Sodium 143 mmol/L (136-145) 02/10/18 07:00 Potassium 4.4 mmol/L (3.5-5.1) 02/10/18 07:00 Chloride 110 mmol/L (98-107) H 02/10/18 07:00 Carbon Dioxide 31 mmol/L (21-32) 02/10/18 07:00 Anion Gap 2 (8-16) L 02/10/18 07:00 BUN 14 mg/dL (7-18) D 02/10/18 07:00 Creatinine 0.7 mg/dL (0.7-1.3) 02/10/18 07:00 Creat Clearance w eGFR > 60 (>60) 02/10/18 07:00 Random Glucose 91 mg/dL (74-106) 02/10/18 07:00 Calcium 8.3 mg/dL (8.5-10.1) L 02/10/18 07:00 Total Bilirubin 0.5 mg/dL (0.2-1.0) D 02/10/18 07:00 AST 19 U/L (15-37) 02/10/18 07:00 ALT 19 U/L (12-78) D 02/10/18 07:00 Alkaline Phosphatase 80 U/L (45-117) 02/10/18 07:00 Total Protein 6.3 g/dl (6.4-8.2) L 02/10/18 07:00 Albumin 3.1 g/dl (3.4-5.0) L 02/10/18 07:00 Urine Color Dkyellow 02/09/18 21:40 Urine Appearance Slcloudy 02/09/18 21:40 Urine pH 6.0 (5.0-8.0) 02/09/18 21:40 Ur Specific [place] 1.020 (1.001-1.035) 02/09/18 21:40 Urine Protein Negative (NEGATIVE) 02/09/18 21:40 Urine Glucose (UA) Negative (NEGATIVE) 02/09/18 21:40 Urine Ketones Negative (NEGATIVE) 02/09/18 21:40 Urine Blood Negative (NEGATIVE) 02/09/18 21:40 Urine Nitrite Negative (NEGATIVE) 02/09/18 21:40 Urine Bilirubin Negative (<2.0 mg/dL) 02/09/18 21:40 Urine Urobilinogen 2.0 mg/dL (0.2-1.0) 02/09/18 21:40 Ur Leukocyte Esterase Negative (NEGATIVE) 02/09/18 21:40 RPR Titer Nonreactive (NONREACTIVE) 02/10/18 07:00 HIV 1&2 Antibody Screen Negative 02/10/18 06:00 HIV P24 Antigen Negative 02/10/18 06:00 Assessment: 02/10/18 11:13 WITHDRAWAL SYMPTOM Plan: CONTINUE DETOX
--- NOTE | 2018-02-10 14:45 | CONSULT ---
[facility] Psychiatric Consult - Data Date of interview: 02/10/18 Admission source: [facility] Identifying data: Readmission to [facility] for this 47 y/o [place]-born male seekig detox treatment on for heroin,cocaine and cannabis dependence.Patient is ,a father of one,domiciled,unemployed and supported on [facility] benefits. Substance Abuse History: Confirmed by patient in this interview.Details in current [facility] report : Smoking history: Current every day smoker. Have you smoked in the past 12 months: Yes. Aproximately how many cigarettes per day: 20. Cigars Per Day: 0. Hx Chewing Tobacco Use: No. Initiated information on smoking cessation: Yes. 'Breaking Loose' booklet given: 02/09/18. - Substance & Tx. History. Hx Alcohol Use: Yes (Many years ago). Hx Substance Use: Yes ( heroin , cocaine). Substance Use Type: Cocaine. - Substances Abused. Heroin. Route: Injection. Frequency: Daily. Amount used: 5 bags. Age of first use: 31. Date of Last Use: 02/09/18. Cocaine. Route: Smoking. Frequency: 1-3 times last 30 days. Amount used: $30-40. Age of first use: 26. Date of Last Use: 02/08/18. Marijuana/Hashish. Route: Smoking. Frequency : 1-2 times per week. Amount used: one blunt. Age of first use: 19. Date of Last Use: 02/06/18 Medical History: Hypertension,hepatitis C and a history of withdrawal-related seizures. Psychiatric History: Patient reports a history of three psychiatric hospitalizations at [facility].Diagnosed with MDD,ADD and JULIANA (self-report).Mr Reagan is prescribed klonopin 1 mg qid + paxil 40 mg/ day and adderall (dose not recalled).Sees psychiatrist Dr Mckenna at [facility] for medication management.States that he took his medications two days ago,prior to this [facility] visit.Patient denies history of suicide attempts. Physical/Sexual Abuse/Trauma History: Patient denies. Additional Comment: Urine Drug Screen Results: THC-Marijuana, JULIA-Cocaine, OPI- Opiates.Noted. Mental Status Exam - Mental Status Exam Alert and Oriented to: Time, Place, Person Cognitive Function: Good Patient Appearance: Well Groomed Mood: Nervous, Withdrawn Affect: Mood Congruent Patient Behavior: Fatigued, Appropriate, Cooperative Speech Pattern: Clear, Appropriate Voice Loudness: Normal Thought Process: Intact, Goal Oriented Thought Disorder: Not Present Hallucinations: Denies Suicidal Ideation: Denies Homicidal Ideation: Denies Insight/Judgement: Fair Sleep: Well Appetite: Good Muscle strength/Tone: Normal Gait/Station: Normal Psychiatric Findings - Problem List ([place] 1, 2,3) (1) Opioid dependence with withdrawal Current Visit: Yes Status: Acute (2) Cannabis dependence, uncomplicated Current Visit: Yes Status: Acute (3) Cocaine dependence, uncomplicated Current Visit: Yes Status: Acute (4) Nicotine dependence, uncomplicated Current Visit: Yes Status: Acute (5) Sedative, hypnotic or anxiolytic dependence with withdrawal, uncomplicated Current Visit: Yes Status: Acute (6) MDD (major depressive disorder) Current Visit: Yes Status: Chronic Comment: As per self-report.On medications.Followed at [facility] (Marcie). (7) Drug-induced mood disorder Current Visit: Yes Status: Acute - Initial Treatment Plan Initial Treatment Plan: Psychoeducation.Detoxification.Pharmacy claims revisited (01/23/18).Medications confirmed.Will resume paxil 40 mg po daily.Side effects/benefits discussed.Patient is made aware of the risk of suicideal ideation and sexual dysfunction.Agrees with this plan of care.Observation.
[2018-02-10] MEDS: THIAMINE HCL 100 MG TABLET (FP) PO SCH (22:18)
[2018-02-10] MEDS: MELATONIN 5 MG TABLETS PO PRN (22:19)
[2018-02-11] MEDS: diazePAM 5 MG TABLET PO PRN ×4 (05:22→19:56)
[2018-02-11] MEDS ORDERED: BACITRACIN 0.9 GM PACKET ONE (09:42)
[2018-02-11] MEDS ORDERED: METHADONE HCL 5 MG TABLET (FOR DETOX USE ONLY) PO ONE (10:00)
[2018-02-11] MEDS: METOPROLOL TARTRATE 50 MG TABLET (FP) PO SCH ×2 (10:46→22:35)
[2018-02-11] MEDS: PARoxetine HCL 20 MG TABLET (FP) PO SCH (10:46)
[2018-02-11] MEDS: PRENATAL VITAMINS W/ FOLIC ACID TABLET (FP) PO SCH (10:46)
[2018-02-11] MEDS: BACITRACIN 15 GM TUBE TOPICAL OINTMENT TP SCH ×2 (10:46→22:35)
[2018-02-11] MEDS: NICOTINE 21 MG/24 HOURS TOPICAL PATCH TD SCH (10:47)
--- NOTE | 2018-02-11 12:35 | PN ---
[facility] CIWA - CIWA Score Nausea/Vomitin Muscle Tremors: 3 Anxiety: 3 Agitation: 2 Paroxysmal Sweats: 1-Minimal Palms Moist Orientation: 0-Oriented Tacttile Disturbances: 1-Very Mild Itch/Numbness Auditory Disturbances: 1-Very Mild Visual Disturbances: 0-None Headache: 2-Mild CIWA-Ar Total Score: 16 BHS COWS - Scale Resting Pulse: 0= [place] 80 or Below Sweatin= Chills/Flushing Restless Observation: 1= Difficult to Sit Still Pupil Size: 1= Pupils >than Normal Bone or Joint Aches: 2= Severe Diffuse Aches Runny Nose/ Eye Tearin= Runny Nose/Eyes GI Upset > 30mins: 2= Nausea/Diarrhea Tremor Observation of Outstretched Hands: 2= Slight Tremor Visible Yawning Observation: 1= 1-2x During Session Anxiety or Irritability: 2=Irritable/Anxious Goose Flesh Skin: 0=Smooth Skin COWS Score: 14 [facility] Progress Note (SOAP) Subjective: ALERT,IRRITABLE,ANXIOUS,INTERRUPTED SLEEP,TREMOR,PAIN IN THE BODY BACK Objective: 02/11/18 12:34 Vital Signs Temperature 99.3 F 02/11/18 08:57 Pulse Rate 57 L 02/11/18 08:57 Respiratory Rate 18 02/11/18 08:57 Blood Pressure 155/87 02/11/18 08:57 O2 Sat by Pulse Oximetry (%) Assessment: 02/11/18 12:35 WITHDRAWAL SYMPTOM Plan: CONTINUE DETOX
[2018-02-11] MEDS: THIAMINE HCL 100 MG TABLET (FP) PO SCH (22:34)
[2018-02-11] MEDS: MELATONIN 5 MG TABLETS PO PRN (22:36)
[2018-02-12] MEDS: diazePAM 5 MG TABLET PO PRN ×4 (05:23→19:03)
[2018-02-12] MEDS ORDERED: METHADONE HCL 5 MG TABLET (FOR DETOX USE ONLY) PO ONE (10:00)
--- NOTE | 2018-02-12 10:16 | PN ---
S Progress Note (SOAP) Subjective: ALERT,IRRITABLE,ANXIOUS,INTERRUPTED SLEEP,PAIN IN THE BODY Objective: 02/12/18 10:13 Vital Signs Temperature 98.2 F 02/12/18 09:26 Pulse Rate 55 L 02/12/18 09:26 Respiratory Rate 18 02/12/18 09:26 Blood Pressure 136/74 02/12/18 09:26 O2 Sat by Pulse Oximetry (%) 02/12/18 10:14 Laboratory Last Values WBC 5.6 K/mm3 (4.0-10.0) 02/10/18 07:00 RBC 4.44 M/mm3 (4.00-5.60) 02/10/18 07:00 Hgb 13.4 GM/dL (11.7-16.9) 02/10/18 07:00 Hct 39.2 % (35.4-49) 02/10/18 07:00 MCV 88.3 fl (80-96) 02/10/18 07:00 MCH 30.1 pg (25.7-33.7) 02/10/18 07:00 MCHC 34.1 g/dl (32.0-35.9) 02/10/18 07:00 RDW 13.8 % (11.9-15.9) 02/10/18 07:00 Plt Count 149 K/MM3 (134-434) 02/10/18 07:00 MPV 9.8 fl (7.5-11.1) 02/10/18 07:00 Sodium 143 mmol/L (136-145) 02/10/18 07:00 Potassium 4.4 mmol/L (3.5-5.1) 02/10/18 07:00 Chloride 110 mmol/L (98-107) H 02/10/18 07:00 Carbon Dioxide 31 mmol/L (21-32) 02/10/18 07:00 Anion Gap 2 (8-16) L 02/10/18 07:00 BUN 14 mg/dL (7-18) D 02/10/18 07:00 Creatinine 0.7 mg/dL (0.7-1.3) 02/10/18 07:00 Creat Clearance w eGFR > 60 (>60) 02/10/18 07:00 Random Glucose 91 mg/dL (74-106) 02/10/18 07:00 Calcium 8.3 mg/dL (8.5-10.1) L 02/10/18 07:00 Total Bilirubin 0.5 mg/dL (0.2-1.0) D 02/10/18 07:00 AST 19 U/L (15-37) 02/10/18 07:00 ALT 19 U/L (12-78) D 02/10/18 07:00 Alkaline Phosphatase 80 U/L (45-117) 02/10/18 07:00 Total Protein 6.3 g/dl (6.4-8.2) L 02/10/18 07:00 Albumin 3.1 g/dl (3.4-5.0) L 02/10/18 07:00 Urine Color Dkyellow 02/09/18 21:40 Urine Appearance Slcloudy 02/09/18 21:40 Urine pH 6.0 (5.0-8.0) 02/09/18 21:40 Ur Specific [place] 1.020 (1.001-1.035) 02/09/18 21:40 Urine Protein Negative (NEGATIVE) 02/09/18 21:40 Urine Glucose (UA) Negative (NEGATIVE) 02/09/18 21:40 Urine Ketones Negative (NEGATIVE) 02/09/18 21:40 Urine Blood Negative (NEGATIVE) 02/09/18 21:40 Urine Nitrite Negative (NEGATIVE) 02/09/18 21:40 Urine Bilirubin Negative (<2.0 mg/dL) 02/09/18 21:40 Urine Urobilinogen 2.0 mg/dL (0.2-1.0) 02/09/18 21:40 Ur Leukocyte Esterase Negative (NEGATIVE) 02/09/18 21:40 RPR Titer Nonreactive (NONREACTIVE) 02/10/18 07:00 HIV 1&2 Antibody Screen Negative 02/10/18 06:00 HIV P24 Antigen Negative 02/10/18 06:00 Assessment: 02/12/18 10:15 WITHDRAWAL SYMPTOM Plan: CONTINUE DETOX
[2018-02-12] MEDS: PARoxetine HCL 20 MG TABLET (FP) PO SCH (10:30)
[2018-02-12] MEDS: PRENATAL VITAMINS W/ FOLIC ACID TABLET (FP) PO SCH (10:30)
[2018-02-12] MEDS: NICOTINE 21 MG/24 HOURS TOPICAL PATCH TD SCH (10:30)
[2018-02-12] MEDS: METOPROLOL TARTRATE 50 MG TABLET (FP) PO SCH ×2 (10:30→22:42)
[2018-02-12] MEDS: BACITRACIN 15 GM TUBE TOPICAL OINTMENT TP SCH ×2 (10:31→22:43)
[2018-02-12] MEDS: hydrOXYzine PAMOATE 50 MG CAPSULE (FP) PO PRN ×2 (10:34→22:44)
[2018-02-12] MEDS: THIAMINE HCL 100 MG TABLET (FP) PO SCH (22:42)
[2018-02-12] MEDS: MELATONIN 5 MG TABLETS PO PRN (22:43)
[2018-02-13] MEDS ORDERED: METHADONE HCL 10 MG TABLET (FOR DETOX USE ONLY) PO ONE (10:00)
--- NOTE | 2018-02-13 10:45 | PN ---
S Progress Note (SOAP) Subjective: ALERT,IRRITABLE,ANXIOUS,INTERRUPTED SLEEP Objective: 02/13/18 10:44 Vital Signs Temperature 98.4 F 02/13/18 09:21 Pulse Rate 55 L 02/13/18 09:21 Respiratory Rate 18 02/13/18 09:21 Blood Pressure 107/52 02/13/18 09:21 O2 Sat by Pulse Oximetry (%) Assessment: 02/13/18 10:44 WITHDRAWAL SYMPTOM Plan: CONTINUE DETOX,DISCHARGE IN AM
[2018-02-13] MEDS: NICOTINE 21 MG/24 HOURS TOPICAL PATCH TD SCH (10:48)
[2018-02-13] MEDS: METOPROLOL TARTRATE 50 MG TABLET (FP) PO SCH (10:48)
[2018-02-13] MEDS: PRENATAL VITAMINS W/ FOLIC ACID TABLET (FP) PO SCH (10:48)
[2018-02-13] MEDS: BACITRACIN 15 GM TUBE TOPICAL OINTMENT TP SCH (10:48)
[2018-02-13] MEDS: PARoxetine HCL 20 MG TABLET (FP) PO SCH (10:48)
[2018-02-13] MEDS: hydrOXYzine PAMOATE 50 MG CAPSULE (FP) PO PRN (10:51)
--- NOTE | 2018-02-13 18:20 | DS ---
[facility] Detox Discharge Summary Admission Date: 02/09/18 Discharge Date: 02/13/18 - History Present History: Opioid Dependence Additional Comments: Patient in no apparent distress. Denies suicidal / homicidal ideation. Patient insist on leaving today, although it advise for him to stay and continue to treatment. The patient verbalizes he understands the risks and complications that may result from the refusal of medical care which may include and permanent disability and has the mental capacity to make such decision. Patient advised to seek medical care at local ER , PCP or urgent care if symptoms worsen. Verbalize understanding. As per patient he will followup with [facility] for his aftercare. - Physical Exam Results Vital Signs: Vital Signs Temperature 97.9 F 02/13/18 14:07 Pulse Rate 57 L 02/13/18 14:07 Respiratory Rate 18 02/13/18 14:07 Blood Pressure 121/70 02/13/18 14:07 O2 Sat by Pulse Oximetry (%) - Treatment Patient has Accepted a Rehab Referral to: As per patient he will be attending [facility] - Medication Discharge Medications: Ambulatory Orders Paroxetine HCl [Paxil] 10 mg PO DAILY 03/06/15 Metoprolol ER-Hctz 25-12.5 mg 50 mg PO BID 09/28/16 Paroxetine HCl [Paxil -] 10 mg PO DAILY #30 tablet 05/23/17 Penicillin V Potassium [Pen Vee K -] 500 mg PO TID tablet 05/25/17 Sulfamethoxazole/Trimethoprim [Bactrim DS -] 1 each PO BID #10 tablet 05/25/17 Dextroamphetamine/Amphetamine [Adderall 10 mg Tablet] 30 mg PO DAILY 01/12/18 Metoprolol Tartrate [Lopressor -] 50 mg PO BID 01/12/18 Suboxone 8Mg/2Mg Sl Film - 8 mg SL TID 01/12/18 clonazePAM [Klonopin -] 1 mg PO TID 01/12/18 - Diagnosis (1) Cannabis dependence, uncomplicated Current Visit: Yes Status: Acute (2) Cocaine dependence, uncomplicated Current Visit: Yes Status: Acute (3) Nicotine dependence, uncomplicated Current Visit: Yes Status: Acute (4) Opioid dependence with withdrawal Current Visit: Yes Status: Acute (5) Sedative, hypnotic or anxiolytic dependence with withdrawal, uncomplicated Current Visit: Yes Status: Acute (6) Hepatitis C Current Visit: Yes Status: Chronic Qualifiers: Viral hepatitis chronicity: carrier Qualified Code(s): B18.2 - Chronic viral hepatitis C (7) Hypertension Current Visit: Yes Status: Chronic Qualifiers: Hypertension type: essential hypertension Qualified Code(s): I10 - Essential (primary) hypertension (8) Track howard due to intravenous drug abuse Current Visit: Yes Status: Chronic (9) Nicotine dependence Current Visit: No Status: Acute Qualifiers: Nicotine product type: cigarettes Substance use status: in withdrawal Qualified Code(s): F17.213 - Nicotine dependence, cigarettes, with withdrawal - AMA Did Patient Leave Against Medical Advice: Yes
[2018-02-13 18:39] VITALS: BP 121/72; PULSE 53; TEMP 99
[2018-02-14] MEDS ORDERED: METHADONE HCL 5 MG TABLET (FOR DETOX USE ONLY) PO ONE (06:00)
== END 2018-02-13 18:19 | disposition left against medical advice (07) | DRG 770 ==
LOC: YASAS 14:12 → Y6N 17:24
PROVIDERS: ADMIT Internal Medicine; ATTEND Internal Medicine
PROC: HZ2ZZZZ Detoxification Services for Substance Abuse Treatment (ICD-10-PCS; principal; 2018-02-09)
DX: F11.23 Opioid dependence with withdrawal (principal); F13.230 Sedative, hypnotic or anxiolytic dependence with withdrawal, uncomplicated; F14.20 Cocaine dependence, uncomplicated; F12.20 Cannabis dependence, uncomplicated; F17.213 Nicotine dependence, cigarettes, with withdrawal; F33.9 Major depressive disorder, recurrent, unspecified; B18.2 Chronic viral hepatitis C; I10 Essential (primary) hypertension
CPT/HCPCS: 36415; 80053; 81003; 85027; 86593; 87389; 93005; 93010

== ENCOUNTER 2018-06-29 12:33 | Inpatient (IN) | payer OTHER ==
[2018-06-29 15:16] VITALS: BMI 22.1
--- NOTE | 2018-06-29 17:53 | HP ---
COWS - Scale Resting Pulse: 0= [place] 80 or Below Sweatin=Flushed/Facial Moisture Restless Observation: 1= Difficult to Sit Still Pupil Size: 0= Normal to Room Light Bone or Joint Aches: 1= Mild Discomfort Runny Nose/ Eye Tearin= Nasal Congestion GI Upset > 30mins: 1= Stomach Cramp Tremor Observation: 2= Slight Tremor Visible Yawning Observation: 1= 1-2x During Session Anxiety or Irritability: 1=Feels Anxious/Irritable Goose Flesh Skin: 3=Piloerection COWS Score: 13 Admission ROS S - HPI Chief Complaint: "i want to get off heroin and get my health back" Allergies/Adverse Reactions: Allergies Allergy/AdvReac Type Severity Reaction Status Date / Time No Known Allergies Allergy Verified 06/29/18 17:42 History of Present Illness: 48 y/o male with a 7 year hx of heroin addiction here for detox. Pt is well known to this facility, last visit February. Pt is on suboxone as documented below. but utox positive for heroin, said he started to use heroin so he "can get detox here in order to get off the suboxone". Last use (heroin)was this a.m. Admits to selling his suboxone. Requesting rehab after detox. Utox positive for suboxone, opiates, oxy, thc but pt denies benzo use stating it might have be mixed with the heroin Others' Prescriptions Patient Name: Jeffy Reagan Date: 1970 Address: [address] [place] [address] Sex: Male Rx Written Rx Dispensed Drug Quantity Days Supply Prescriber Name 06/12/2018 06/13/2018 suboxone 8 mg-2 mg sl film 90 30 Clarisa, Justice 06/12/2018 06/13/2018 clonazepam 1 mg tablet 85 28 Clarisa, Justice 12/19/2017 12/31/2017 dextroamp-amphetamin 15 mg tab 30 30 Clarisa, Justice 12/19/2017 12/24/2017 suboxone 8 mg-2 mg sl film 90 30 Clarisa, Justice 12/19/2017 12/24/2017 clonazepam 1 mg tablet 90 30 Clarisa, Justice 11/25/2017 12/02/2017 dextroamp-amphet er 15 mg cap 30 30 Clarisa, Justice 11/25/2017 11/27/2017 clonazepam 2 mg tablet 60 30 Clarisa, Justice 11/25/2017 11/27/2017 suboxone 8 mg-2 mg sl film 90 30 Clarisa, [facility] Patient Name: Jeffy Reagan Date: 1970 Address: [address] [place] [address] Sex: Male Rx Written Rx Dispensed Drug Quantity Days Supply Prescriber Name 06/12/2018 06/12/2018 dextroamp-amphetamin 10 mg tab 30 30 Clarisa, Justice 06/06/2018 06/06/2018 clonazepam 1 mg tablet 30 10 Jerrell Acosta 05/18/2018 05/18/2018 clonazepam 1 mg tablet 4 1 GravesAdam MD 05/15/2018 05/15/2018 suboxone 8 mg-2 mg sl film 90 30 Clarisa, [facility] 05/15/2018 05/15/2018 clonazepam 1 mg tablet 85 28 Clarisa, Justice 05/15/2018 05/15/2018 dextroamp-amphetamin 10 mg tab 30 30 Clarisa, Justice 04/17/2018 04/17/2018 clonazepam 1 mg tablet 85 28 Clarisa, Justice 04/17/2018 04/17/2018 dextroamp-amphet er 10 mg cap 30 30 Clarisa, Justice 04/17/2018 04/17/2018 suboxone 8 mg-2 mg sl film 90 30 Clarisa, [facility] 03/20/2018 03/20/2018 suboxone 8 mg-2 mg sl film 90 30 Clarisa, Justice 03/20/2018 03/20/2018 dextroamp-amphet er 10 mg cap 30 30 Clarisa, Justice 03/20/2018 03/20/2018 clonazepam 1 mg tablet 90 30 Clarisa, Justice 02/20/2018 02/20/2018 suboxone 8 mg-2 mg sl film 90 30 Clarisa, Justice 02/20/2018 02/20/2018 clonazepam 1 mg tablet 90 30 Clarisa, Justice 02/20/2018 02/20/2018 dextroamp-amphet er 15 mg cap 30 30 Clarisa, Justice 01/23/2018 01/23/2018 clonazepam 1 mg tablet 90 30 Clarisa, Justice 01/23/2018 01/23/2018 suboxone 8 mg-2 mg sl film 90 30 Clarisa, Justice 01/23/2018 01/23/2018 dextroamp-amphetamin 15 mg tab 30 30 Clarisa, Justice hx: HTN, Hep C Psch hx; Major depressive d/o, Anxiety, Panic attacks, ADD Denies SI - Ebola screening Have you traveled outside of the country in the last 21 days: No Have you had contact with anyone from an Ebola affected area: No Have you been sick,other than usual withdrawal symptoms: No Do you have a fever: No - Review of Systems Constitutional: Night Sweats, Changes in sleep, Unintentional Wgt. Loss EENT: reports: Dental Problems (wears top denture) Respiratory: reports: No Symptoms reported Cardiac: reports: No Symptoms Reported GI: reports: Diarrhea, Nausea : reports: No Symptoms Reported Musculoskeletal: reports: No Symptoms Reported Integumentary: reports: No Symptoms Reported Neuro: reports: No Symptoms reported Endocrine: reports: No Symptoms Reported Hematology: reports: No Symptoms Reported Psychiatric: reports: No Sypmtoms Reported, Orientated x3, Anxious Other Systems: Reviewed and Negative Patient History - Patient Medical History Hx Anemia: No Hx Asthma: No Hx Chronic Obstructive Pulmonary Disease (COPD): No Hx Cancer: No Hx Cardiac Disorders: No Hx Congestive Heart Failure: No Hx Hypertension: Yes (On metoropol) Hx Hypercholesterolemia: Yes (Borderline - Not on meds) Hx Pacemaker: No HX Cerebrovascular Accident: No Hx Seizures: Yes ("Years ago") Hx Dementia: No Hx Diabetes: No Hx Gastrointestinal Disorders: No Hx Liver Disease: No Hx Genitourinary Disorders: No Hx Sexually Transmitted Disorders: No Hx Renal Disease (ESRD): No Hx Thyroid Disease: No Hx Human Immunodeficiency Virus (HIV): No (Negative, Last tested 7 months ago) Hx Hepatitis C: Yes (Not treated) Hx Depression: Yes (On Paxil) Hx Suicide Attempt: No (Denies current SI) Hx Bipolar Disorder: Yes (On Paxil) Hx Schizophrenia: No - Patient Surgical History Past Surgical History: Yes Hx Neurologic Surgery: No Hx Cataract Extraction: No Hx Cardiac Surgery: No Hx Lung Surgery: No Hx Breast Surgery: No Hx Breast Biopsy: No Hx Abdominal Surgery: No Hx Appendectomy: No Hx Cholecystectomy: No Hx Genitourinary Surgery: No Hx Section: No Hx Orthopedic Surgery: No Hx Hysterectomy: No Other Surgical History: WOUND debriding AFTER DOG BITE x 1 yr ago Anesthesia Reaction: No - PPD History Previous Implant?: Yes Documented Results: Negative w/proof Implanted On Prior [facility] Admission?: Yes Date: 05/24/17 Results: NEGATIVE PPD to be Administered?: Yes - Reproductive History Patient is a Female of Child Bearing Age (11 -55 yrs old): No - Smoking Cessation Smoking history: Current every day smoker Have you smoked in the past 12 months: Yes Aproximately how many cigarettes per day: 20 Cigars Per Day: 0 Hx Chewing Tobacco Use: No Initiated information on smoking cessation: No 'Breaking Loose' booklet given: 06/29/18 - Substance & Tx. History Hx Alcohol Use: No Hx Substance Use: Yes Substance Use Type: Cocaine, Heroin, Marijuana Hx Substance Use Treatment: Yes - Substances Abused Heroin Route: Injection Frequency: Daily Amount used: 5-6 BAGS Age of first use: 31 Date of Last Use: 06/29/18 Crack Frequency: 1-3 times last 30 days Amount used: $20 - $30 Age of first use: 22 Date of Last Use: 06/19/18 Family Disease History - Family Disease History Family Disease History: Heart Disease: Father (, HTN), Other: Father, Mother (no med hx), Brother (no contact) Admission Physical Exam BHS - Vital Signs Vital Signs: Vital Signs - 24 hr 06/29/18 15:14 Temperature 97.4 F L Pulse Rate 64 Respiratory 20 Rate Blood Pressure 147/92 - Physical General Appearance: Yes: Mild Distress, Anxious HEENTM: Yes: Within Normal Limits Respiratory: Yes: Within Normal Limits, No Respiratory Distress, No Accessory Muscle Use Neck: Yes: No masses,lesions,Nodules, Trachea in good position Breast: Yes: Breast Exam Deferred Cardiology: Yes: Within Normal Limits, Regular Rate Abdominal: Yes: Normal Bowel Sounds, Non Tender, Soft Genitourinary: Yes: Within Normal Limits Back: Yes: Normal Inspection Musculoskeletal: Yes: full range of Motion, Gait Steady Extremities: Yes: Normal Capillary Refill, Normal Inspection, Normal Range of Motion Neurological: Yes: Within Normal Limits, Fully Oriented, Alert, Motor Strength 5 /5, Normal Response Integumentary: Yes: Normal Color, Dry, Track Howard (both arms) Lymphatic: Yes: Within Normal Limits - Diagnostic (1) Opioid dependence with uncomplicated intoxication Current Visit: Yes Status: Acute (2) Nicotine dependence, uncomplicated Current Visit: Yes Status: Acute (3) Cannabis dependence, uncomplicated Current Visit: Yes Status: Chronic (4) Dental cavity Current Visit: Yes Status: Chronic (5) Hepatitis C Current Visit: Yes Status: Chronic Qualifiers: Viral hepatitis chronicity: carrier Qualified Code(s): B18.2 - Chronic viral hepatitis C (6) Hypertension Current Visit: Yes Status: Chronic Qualifiers: Hypertension type: essential hypertension Qualified Code(s): I10 - Essential (primary) hypertension (7) MDD (major depressive disorder) Current Visit: Yes Status: Chronic Comment: As per self-report.On medications.Followed at [facility] (Marcie). (8) Track howard due to intravenous drug abuse Current Visit: Yes Status: Acute Cleared for Admission S - Detox or Rehab [facility] Level of Care: Medically Managed Detox Regimen/Protocol: Methadone S Breath Alcohol Content Breath Alcohol Content: 0 Urine Drug Screen - Results Drug Screen Negative: No Urine Drug Screen Results: THC-Marijuana, OPI-Opiates, OXY-Oxycodone, BUP- Suboxone
[2018-06-29] MEDS ORDERED: ACETAMINOPHEN 325 MG TABLET (FP) PO PRN (18:21)
[2018-06-29] MEDS ORDERED: LOPERAMIDE HCL 2 MG CAPSULE PO PRN (18:21)
[2018-06-29] MEDS ORDERED: P-EPHED 60MG/TRIPROLIDI 2.5MG TABLET PO PRN (18:21)
[2018-06-29] MEDS ORDERED: METHADONE HCL 10 MG TABLET (FOR DETOX USE ONLY) PO ONE ×2 (18:21→23:00)
[2018-06-29] MEDS ORDERED: MENTHOL/PHENOL 1 EACH UD MM PRN (18:21)
[2018-06-29] MEDS ORDERED: guaiFENesin/D-METHORPHAN HB 10 ML UNIT-DOSE CUPS PO PRN (18:21)
[2018-06-29] MEDS ORDERED: MAG HYDROX/AL HYDROX/SIMETH 30 ML UNIT-DOSE CUP PO PRN (18:21)
[2018-06-29] MEDS ORDERED: MAGNESIUM CITRATE 300 ML BOTTLE PO PRN (18:21)
[2018-06-29] MEDS ORDERED: IBUPROFEN 400 MG TABLET (FP) PO PRN (18:21)
[2018-06-29] MEDS: diazePAM 5 MG TABLET PO PRN ×2 (19:34→22:44)
[2018-06-29] MEDS: NICOTINE 21 MG/24 HOURS TOPICAL PATCH TD SCH (19:58)
[2018-06-29] MEDS ORDERED: MELATONIN 5 MG TABLETS PO PRN (22:00)
[2018-06-29] MEDS: METOPROLOL TARTRATE 50 MG TABLET (FP) PO SCH (22:44)
[2018-06-29] MEDS: THIAMINE HCL 100 MG TABLET (FP) PO SCH (22:45)
[2018-06-30] MEDS: diazePAM 5 MG TABLET PO PRN ×4 (07:20→20:05)
[2018-06-30] MEDS: NICOTINE POLACRILEX 4 MG GUM BC PRN ×3 (07:55→22:19)
[2018-06-30] MEDS ORDERED: METHADONE HCL 10 MG TABLET (FOR DETOX USE ONLY) PO ONE (10:00)
[2018-06-30 10:12] LABS: HEMATOCRIT 38.7 % (35.4-49); MCHC 33.7 g/dl (32.0-35.9); MEAN CELL VOLUME 89.1 fl (80-96); MEAN PLT VOLUME 9.9 fl (7.5-11.1); PLATELET COUNT 141 K/MM3 (134-434); RBC 4.34 M/mm3 (4.00-5.60); RDW 13.7 % (11.9-15.9); WHITE BLOOD COUNT 6.2 K/mm3 (4.0-10.0)
[2018-06-30] MEDS: NICOTINE 21 MG/24 HOURS TOPICAL PATCH TD SCH (10:40)
[2018-06-30] MEDS: METOPROLOL TARTRATE 50 MG TABLET (FP) PO SCH ×2 (10:40→22:18)
[2018-06-30] MEDS: PRENATAL VITAMINS W/ FOLIC ACID TABLET (FP) PO SCH (10:41)
[2018-06-30 10:48] LABS: ALK PHOS 72 U/L (45-117); ANION GAP 3 MMOL/L (8-16); BILIRUBIN,TOTAL 0.3 mg/dL (0.2-1); BLOOD UREA NITROGEN 14 mg/dL (7-18); CALCIUM 8.8 mg/dL (8.5-10.1); CHLORIDE 106 mmol/L (98-107); CO2 32 mmol/L (21-32); CREATININE 0.8 mg/dL (0.55-1.3); GLUCOSE,RANDOM 90 mg/dL (74-106); POTASSIUM 4.6 mmol/L (3.5-5.1); SGOT/AST 62 U/L (15-37); SGPT/ALT 86 U/L (13-61); SODIUM 140 mmol/L (136-145); TOT PROT 6.2 g/dl (6.4-8.2)
--- NOTE | 2018-06-30 12:19 | EKG ---
Test Reason : Blood Pressure : / mmHG Vent. Rate : 049 BPM Atrial Rate : 049 BPM P-R Int : 148 ms QRS Dur : 084 ms QT Int : 416 ms P-R-T Axes : 063 057 057 degrees QTc Int : 375 ms SINUS BRADYCARDIA OTHERWISE NORMAL ECG WHEN COMPARED WITH ECG OF 09-FEB-2018 20:37, NO SIGNIFICANT CHANGE WAS FOUND Confirmed by MIO WOLF MD ([id number]) on 06/30/2018 12:18:45 PM Referred By: PORTER DUGAN Confirmed By:MIO WOLF MD
--- NOTE | 2018-06-30 13:07 | CONSULT ---
[facility] Psychiatric Consult - Data Date of interview: 06/30/18 Admission source: [facility] Identifying data: Patient is a 48 year old single male, father of one, unemployed, domiciled, and is supported by disability. This is one of multiple admissions for patient. Pt. admitted to for marijuana and opioid dependence. Substance Abuse History: Smoking Cessation. Smoking history: Current every day smoker. Have you smoked in the past 12 months: Yes. Aproximately how many cigarettes per day: 20. Cigars Per Day: 0. Hx Chewing Tobacco Use: No. Initiated information on smoking cessation: No. 'Breaking Loose' booklet given : 06/29/18. - Substance & Tx. History. Hx Alcohol Use: No. Hx Substance Use: Yes. Substance Use Type: Cocaine, Heroin, Marijuana. Hx Substance Use Treatment: Yes. - Substances Abused. Heroin. Route: Injection. Frequency : Daily. Amount used: 5-6 BAGS. Age of first use: 31. Date of Last Use: 06/29. Crack. Frequency: 1-3 times last 30 days. Amount used: $20 - $30. Age of first use: 22. Date of Last Use: 06/19/18 Medical History: hypertension, hypercholesterolemia, Hep C Psychiatric History: Patient denies h/o psychiatric hospitalizations. States he receives outpatient care from [facility] outpatient clinic and is prescribed paxil 40mg + Klonopin 1mg TID. Reports a self diagnosis of MDD and JULIANA. Pt. denies h/o suicide attempt. As per Dr. Benson note on 02/10/18 Patient reported a history of three psychiatric hospitalizations at [facility]. Patient denies h/o suicide attempt. Physical/Sexual Abuse/Trauma History: denies. Mental Status Exam - Mental Status Exam Alert and Oriented to: Time, Place, Person Cognitive Function: Good Patient Appearance: Well Groomed Mood: Withdrawn, Euthymic Affect: Mood Congruent Patient Behavior: Fatigued, Guarded, Cooperative Speech Pattern: Appropriate Voice Loudness: Moderately Soft/Quiet Thought Process: Intact, Goal Oriented Thought Disorder: Not Present Hallucinations: Denies Suicidal Ideation: Denies Homicidal Ideation: Denies Insight/Judgement: Poor Sleep: Fair Appetite: Fair Muscle strength/Tone: Normal Gait/Station: Other (Did not observe patient's gait) Psychiatric Findings - Problem List ([place] 1, 2,3) (1) Nicotine dependence, uncomplicated Current Visit: Yes Status: Chronic (2) Cannabis dependence, uncomplicated Current Visit: Yes Status: Chronic (3) Opioid dependence with withdrawal Current Visit: Yes Status: Acute (4) MDD (major depressive disorder) Current Visit: Yes Status: Chronic Comment: As per self-report.On medications.Followed at [facility] (Marcie). (5) Drug-induced mood disorder Current Visit: Yes Status: Acute - Initial Treatment Plan Initial Treatment Plan: Psychoeducation provided. Detoxification in progress. Will order Paxil 40mg. Benefits and side effects discussed. Verbal consent given.
--- NOTE | 2018-06-30 15:07 | PN ---
BHS COWS - Scale Resting Pulse: 0= [place] 80 or Below Sweatin= No chills or Flushing Restless Observation: 0= Sits Still Pupil Size: 0= Normal to Room Light Bone or Joint Aches: 1= Mild Discomfort Runny Nose/ Eye Tearin= None GI Upset > 30mins: 2= Nausea/Diarrhea (No diarrhea) Tremor Observation of Outstretched Hands: 2= Slight Tremor Visible Yawning Observation: 0= None Anxiety or Irritability: 1=Feels Anxious/Irritable Goose Flesh Skin: 0=Smooth Skin COWS Score: 6 BHS Progress Note (SOAP) Subjective: Feeling a bit nauseous. I'm shaking a bit, but I feel better. Still anxious. Objective: A&O x3. Abd S/NT/BS+. Mild tremors felt in hands. Gait steady. Vital Signs 06/30/18 06/30/18 09:12 13:58 Temperature 98.2 F 97.9 F Pulse Rate 67 53 L Respiratory 18 18 Rate Blood Pressure 114/71 105/58 L Laboratory Last Values WBC 6.2 K/mm3 (4.0-10.0) 06/30/18 07:00 RBC 4.34 M/mm3 (4.00-5.60) 06/30/18 07:00 Hgb 13.0 GM/dL (11.7-16.9) 06/30/18 07:00 Hct 38.7 % (35.4-49) 06/30/18 07:00 MCV 89.1 fl (80-96) 06/30/18 07:00 MCH 30.0 pg (25.7-33.7) 06/30/18 07:00 MCHC 33.7 g/dl (32.0-35.9) 06/30/18 07:00 RDW 13.7 % (11.9-15.9) 06/30/18 07:00 Plt Count 141 K/MM3 (134-434) 06/30/18 07:00 MPV 9.9 fl (7.5-11.1) 06/30/18 07:00 Sodium 140 mmol/L (136-145) 06/30/18 07:00 Potassium 4.6 mmol/L (3.5-5.1) 06/30/18 07:00 Chloride 106 mmol/L (98-107) 06/30/18 07:00 Carbon Dioxide 32 mmol/L (21-32) 06/30/18 07:00 Anion Gap 3 MMOL/L (8-16) L 06/30/18 07:00 BUN 14 mg/dL (7-18) 06/30/18 07:00 Creatinine 0.8 mg/dL (0.55-1.3) 06/30/18 07:00 Creat Clearance w eGFR > 60 (>60) 06/30/18 07:00 Random Glucose 90 mg/dL (74-106) 06/30/18 07:00 Calcium 8.8 mg/dL (8.5-10.1) 06/30/18 07:00 Total Bilirubin 0.3 mg/dL (0.2-1) 06/30/18 07:00 AST 62 U/L (15-37) H 06/30/18 07:00 ALT 86 U/L (13-61) H 06/30/18 07:00 Alkaline Phosphatase 72 U/L (45-117) 06/30/18 07:00 Total Protein 6.2 g/dl (6.4-8.2) L 06/30/18 07:00 Albumin 3.0 g/dl (3.4-5.0) L 06/30/18 07:00 RPR Titer Nonreactive (NONREACTIVE) 06/30/18 07:00 Labs reviewed. Assessment: Withdrawal symptoms. Plan: Continue detox.
[2018-06-30] MEDS: PARoxetine HCL 20 MG TABLET (FP) PO SCH (15:13)
[2018-06-30 18:46] LABS: URINE APPEARANCE SLCLOUDY; URINE BILIRUBIN NEGATIVE (<2.0 mg/dL); URINE COLOR AMBER; URINE GLUCOSE (UA) NEGATIVE (NEGATIVE); URINE KETONE NEGATIVE (NEGATIVE); URINE LEUK ESTERASE NEGATIVE (NEGATIVE); URINE NITRITE NEGATIVE (NEGATIVE); URINE PROTEIN NEGATIVE (NEGATIVE); URINE UROBILINOGEN NEGATIVE mg/dL (0.2-1.0)
[2018-06-30] MEDS: THIAMINE HCL 100 MG TABLET (FP) PO SCH (22:18)
[2018-07-01] MEDS: diazePAM 5 MG TABLET PO PRN ×5 (00:25→22:04)
[2018-07-01] MEDS: NICOTINE POLACRILEX 4 MG GUM BC PRN ×3 (07:35→22:04)
[2018-07-01] MEDS ORDERED: METHADONE HCL 5 MG TABLET (FOR DETOX USE ONLY) PO ONE (10:00)
[2018-07-01] MEDS: PARoxetine HCL 20 MG TABLET (FP) PO SCH (10:50)
[2018-07-01] MEDS: METOPROLOL TARTRATE 50 MG TABLET (FP) PO SCH ×2 (10:50→22:04)
[2018-07-01] MEDS: PRENATAL VITAMINS W/ FOLIC ACID TABLET (FP) PO SCH (10:50)
[2018-07-01] MEDS: NICOTINE 21 MG/24 HOURS TOPICAL PATCH TD SCH (11:39)
--- NOTE | 2018-07-01 17:42 | PN ---
BHS COWS - Scale Resting Pulse: 0= [place] 80 or Below Sweatin= Chills/Flushing Restless Observation: 1= Difficult to Sit Still Pupil Size: 1= Pupils >than Normal Bone or Joint Aches: 1= Mild Discomfort Runny Nose/ Eye Tearin= Nasal Congestion GI Upset > 30mins: 1= Stomach Cramp Tremor Observation of Outstretched Hands: 0= None Yawning Observation: 1= 1-2x During Session Anxiety or Irritability: 1=Feels Anxious/Irritable Goose Flesh Skin: 0=Smooth Skin COWS Score: 8 BHS Progress Note (SOAP) Subjective: mild joint pain body ache trouble sleep at night Objective: 07/01/18 17:41 Vital Signs Temperature 98.2 F 07/01/18 12:55 Pulse Rate 56 L 07/01/18 12:55 Respiratory Rate 18 07/01/18 12:55 Blood Pressure 116/57 L 07/01/18 12:55 O2 Sat by Pulse Oximetry (%) Laboratory Last Values WBC 6.2 K/mm3 (4.0-10.0) 06/30/18 07:00 RBC 4.34 M/mm3 (4.00-5.60) 06/30/18 07:00 Hgb 13.0 GM/dL (11.7-16.9) 06/30/18 07:00 Hct 38.7 % (35.4-49) 06/30/18 07:00 MCV 89.1 fl (80-96) 06/30/18 07:00 MCH 30.0 pg (25.7-33.7) 06/30/18 07:00 MCHC 33.7 g/dl (32.0-35.9) 06/30/18 07:00 RDW 13.7 % (11.9-15.9) 06/30/18 07:00 Plt Count 141 K/MM3 (134-434) 06/30/18 07:00 MPV 9.9 fl (7.5-11.1) 06/30/18 07:00 Sodium 140 mmol/L (136-145) 06/30/18 07:00 Potassium 4.6 mmol/L (3.5-5.1) 06/30/18 07:00 Chloride 106 mmol/L (98-107) 06/30/18 07:00 Carbon Dioxide 32 mmol/L (21-32) 06/30/18 07:00 Anion Gap 3 MMOL/L (8-16) L 06/30/18 07:00 BUN 14 mg/dL (7-18) 06/30/18 07:00 Creatinine 0.8 mg/dL (0.55-1.3) 06/30/18 07:00 Creat Clearance w eGFR > 60 (>60) 06/30/18 07:00 Random Glucose 90 mg/dL (74-106) 06/30/18 07:00 Calcium 8.8 mg/dL (8.5-10.1) 06/30/18 07:00 Total Bilirubin 0.3 mg/dL (0.2-1) 06/30/18 07:00 AST 62 U/L (15-37) H 06/30/18 07:00 ALT 86 U/L (13-61) H 06/30/18 07:00 Alkaline Phosphatase 72 U/L (45-117) 06/30/18 07:00 Total Protein 6.2 g/dl (6.4-8.2) L 06/30/18 07:00 Albumin 3.0 g/dl (3.4-5.0) L 06/30/18 07:00 Urine Color Gina 06/30/18 18:00 Urine Appearance Slcloudy 06/30/18 18:00 Urine pH 6.0 (5.0-8.0) 06/30/18 18:00 Ur Specific [place] 1.020 (1.001-1.035) 06/30/18 18:00 Urine Protein Negative (NEGATIVE) 06/30/18 18:00 Urine Glucose (UA) Negative (NEGATIVE) 06/30/18 18:00 Urine Ketones Negative (NEGATIVE) 06/30/18 18:00 Urine Blood Negative (NEGATIVE) 06/30/18 18:00 Urine Nitrite Negative (NEGATIVE) 06/30/18 18:00 Urine Bilirubin Negative (<2.0 mg/dL) 06/30/18 18:00 Urine Urobilinogen Negative mg/dL (0.2-1.0) 06/30/18 18:00 Ur Leukocyte Esterase Negative (NEGATIVE) 06/30/18 18:00 RPR Titer Nonreactive (NONREACTIVE) 06/30/18 07:00 lab noted Assessment: 07/01/18 17:42 withdrawal sx Plan: continue detox
[2018-07-01] MEDS: THIAMINE HCL 100 MG TABLET (FP) PO SCH (22:04)
[2018-07-02] MEDS: diazePAM 5 MG TABLET PO PRN ×3 (06:06→14:17)
[2018-07-02] MEDS ORDERED: METHADONE HCL 5 MG TABLET (FOR DETOX USE ONLY) PO ONE (10:00)
[2018-07-02] MEDS: PRENATAL VITAMINS W/ FOLIC ACID TABLET (FP) PO SCH (10:06)
[2018-07-02] MEDS: METOPROLOL TARTRATE 50 MG TABLET (FP) PO SCH ×2 (10:06→22:05)
[2018-07-02] MEDS: NICOTINE 21 MG/24 HOURS TOPICAL PATCH TD SCH (10:06)
[2018-07-02] MEDS: PARoxetine HCL 20 MG TABLET (FP) PO SCH (10:06)
--- NOTE | 2018-07-02 11:47 | PN ---
BHS Progress Note (SOAP) Subjective: muscle cramping body aches sweat tremor resetlessness Objective: 07/02/18 11:46 Vital Signs Temperature 98.4 F 07/02/18 09:26 Pulse Rate 60 07/02/18 09:26 Respiratory Rate 18 07/02/18 09:26 Blood Pressure 126/85 07/02/18 09:26 O2 Sat by Pulse Oximetry (%) Laboratory Last Values WBC 6.2 K/mm3 (4.0-10.0) 06/30/18 07:00 RBC 4.34 M/mm3 (4.00-5.60) 06/30/18 07:00 Hgb 13.0 GM/dL (11.7-16.9) 06/30/18 07:00 Hct 38.7 % (35.4-49) 06/30/18 07:00 MCV 89.1 fl (80-96) 06/30/18 07:00 MCH 30.0 pg (25.7-33.7) 06/30/18 07:00 MCHC 33.7 g/dl (32.0-35.9) 06/30/18 07:00 RDW 13.7 % (11.9-15.9) 06/30/18 07:00 Plt Count 141 K/MM3 (134-434) 06/30/18 07:00 MPV 9.9 fl (7.5-11.1) 06/30/18 07:00 Sodium 140 mmol/L (136-145) 06/30/18 07:00 Potassium 4.6 mmol/L (3.5-5.1) 06/30/18 07:00 Chloride 106 mmol/L (98-107) 06/30/18 07:00 Carbon Dioxide 32 mmol/L (21-32) 06/30/18 07:00 Anion Gap 3 MMOL/L (8-16) L 06/30/18 07:00 BUN 14 mg/dL (7-18) 06/30/18 07:00 Creatinine 0.8 mg/dL (0.55-1.3) 06/30/18 07:00 Creat Clearance w eGFR > 60 (>60) 06/30/18 07:00 Random Glucose 90 mg/dL (74-106) 06/30/18 07:00 Calcium 8.8 mg/dL (8.5-10.1) 06/30/18 07:00 Total Bilirubin 0.3 mg/dL (0.2-1) 06/30/18 07:00 AST 62 U/L (15-37) H 06/30/18 07:00 ALT 86 U/L (13-61) H 06/30/18 07:00 Alkaline Phosphatase 72 U/L (45-117) 06/30/18 07:00 Total Protein 6.2 g/dl (6.4-8.2) L 06/30/18 07:00 Albumin 3.0 g/dl (3.4-5.0) L 06/30/18 07:00 Urine Color Gina 06/30/18 18:00 Urine Appearance Slcloudy 06/30/18 18:00 Urine pH 6.0 (5.0-8.0) 06/30/18 18:00 Ur Specific [place] 1.020 (1.001-1.035) 06/30/18 18:00 Urine Protein Negative (NEGATIVE) 06/30/18 18:00 Urine Glucose (UA) Negative (NEGATIVE) 06/30/18 18:00 Urine Ketones Negative (NEGATIVE) 06/30/18 18:00 Urine Blood Negative (NEGATIVE) 06/30/18 18:00 Urine Nitrite Negative (NEGATIVE) 06/30/18 18:00 Urine Bilirubin Negative (<2.0 mg/dL) 06/30/18 18:00 Urine Urobilinogen Negative mg/dL (0.2-1.0) 06/30/18 18:00 Ur Leukocyte Esterase Negative (NEGATIVE) 06/30/18 18:00 RPR Titer Nonreactive (NONREACTIVE) 06/30/18 07:00 lab noted Assessment: 07/02/18 11:46 opiate withdrawal sx Plan: continue opiate detox
[2018-07-02] MEDS ORDERED: FLU VACCINE QUAD 60 MCG/0.5 ML (MDV 18-19) IM ONE (13:00)
[2018-07-02] MEDS: NICOTINE POLACRILEX 4 MG GUM BC PRN ×3 (14:17→22:06)
--- NOTE | 2018-07-02 15:21 | PN ---
Psychiatric Progress Note Vital Signs: Vital Signs Period Temp Pulse Resp BP Sys/Cho Pulse Ox Last 24 Hr 96.3 F-98.4 F 49-60 16-18 118-147/60-85 Date of Session: 07/02/18 Chief Complaint:: "I can't sleep." HPI: Pt. admitted to for marijuana and opioid dependence. ROS: hypertension, hypercholesterolemia, Hep C Current Medications: Active Medications Generic Name Dose Route Start Last Admin Trade Name Freq PRN Reason Stop Dose Admin Acetaminophen 650 mg 06/29/18 18:21 Tylenol - PO Q4H PRN FEVER Al Hydroxide/Mg Hydroxide 30 ml 06/29/18 18:21 Mylanta Oral Suspension - PO Q6H PRN DYSPEPSIA Diazepam 10 mg 06/29/18 18:21 07/02/18 14:17 Valium - PO 07/02/18 18:20 10 mg Q4H PRN Administration WITHDRAWAL(CONT SUBST) Eucalyptus/Menthol/Phenol/Sorbitol 1 each 06/29/18 18:21 Cepastat Lozenge - MM Q4H PRN SORE THROAT Guaifenesin 10 ml 06/29/18 18:21 Robitussin Dm - PO Q6H PRN COUGH Ibuprofen 400 mg 06/29/18 18:21 Motrin - PO Q6H PRN PAIN LEVEL 4-6 Loperamide HCl 4 mg 06/29/18 18:21 Imodium - PO Q6H PRN DIARRHEA Magnesium Citrate 300 ml 06/29/18 18:21 Citroma - PO Q48H PRN CONSTIPATION Magnesium Hydroxide 30 ml 06/29/18 18:21 Milk Of Magnesia - PO DAILY PRN CONSTIPATION Melatonin 5 mg 06/29/18 22:00 Melatonin PO HS PRN INSOMNIA Methadone HCl 5 mg 07/04/18 06:00 Dolophine - PO 07/04/18 06:01 ONCE@0600 ONE Methadone HCl 10 mg 07/03/18 10:00 Dolophine - PO 07/03/18 10:01 ONCE ONE Metoprolol Tartrate 50 mg 06/29/18 22:00 07/02/18 10:06 Lopressor - PO 50 mg BID LUCY Administration Nicotine 21 mg 06/29/18 18:30 07/02/18 10:06 Nicoderm Patch - TD 21 mg DAILY LUCY Administration Nicotine Polacrilex 4 mg 06/29/18 18:21 07/02/18 14:17 Nicorette Gum - BC 4 mg Q2H PRN Administration NICOTINE REPLACEMENT RX Paroxetine HCl 40 mg 06/30/18 13:45 07/02/18 10:06 Paxil - PO 40 mg DAILY LUCY Administration Multivit/Folic Acid/Iron 1 tab 06/30/18 10:00 07/02/18 10:06 Vitamins (Sjr) - PO 1 tab DAILY LUCY Administration Pseudoephedrine/Triprolidine 1 combo 06/29/18 18:21 Actifed - PO TID PRN NASAL CONGESTION Thiamine HCl 100 mg 06/29/18 22:00 07/01/18 22:04 Vitamin B1 - PO 100 mg HS LUCY Administration Medication(s) Change(s): Yes. Will add ambien 10mg Current Side Effect: No Lab tests ordered: No Lab tests reviewed: Yes Provider note:: Chart reviewed. Pt. c/o poor sleep. Reports past h/o accepting ambien with good effect. He is currently accepting prozac 40mg daily. Will order ambien 10mg qhs prn. Sleep hygiene discussed. Benefits and side effects discussed. Patient made aware of the risk of parasomnia when accepting ambien. Verbal consent given. Total face to face time:: 25 Mental Status Exam - Mental Status Exam Alert and Oriented to: Time, Place, Person Cognitive Function: Good Patient Appearance: Well Groomed Mood: Euthymic Affect: Appropriate Patient Behavior: Appropriate, Cooperative Speech Pattern: Appropriate Voice Loudness: Normal Thought Process: Intact Thought Disorder: Not Present Hallucinations: Denies Suicidal Ideation: Denies Homicidal Ideation: Denies Insight/Judgement: Poor Sleep: Poorly Appetite: Poor Muscle strength/Tone: Normal Gait/Station: Normal Psychiatric Treatment Plan - Problem List (1) Nicotine dependence, uncomplicated Current Visit: Yes (2) Cannabis dependence, uncomplicated Current Visit: Yes (3) Opioid dependence with withdrawal Current Visit: Yes (4) MDD (major depressive disorder) Current Visit: Yes Comment: As per self-report.On medications.Followed at [facility] (Marcie). (5) Drug-induced mood disorder Current Visit: Yes (6) Insomnia Current Visit: Yes
[2018-07-02] MEDS: MAGNESIUM HYDROX 2400MG/30ML ORAL SUSPENSION 30 ML CUP PO PRN (15:33)
[2018-07-02] MEDS: ZOLPIDEM TARTRATE 10 MG TABLET (PARK CARE ONLY) PO PRN (22:05)
[2018-07-02] MEDS: THIAMINE HCL 100 MG TABLET (FP) PO SCH (22:05)
--- NOTE | 2018-07-03 09:56 | PN ---
S Progress Note Note: Vital Signs Temperature 98.6 F 07/03/18 08:58 Pulse Rate 59 L 07/03/18 08:58 Respiratory Rate 48 H 07/03/18 08:58 Blood Pressure 109/59 L 07/03/18 08:58 O2 Sat by Pulse Oximetry (%) c/o interrupted sleep AOX3 no distress no adventitious breath sounds full ROM, ambulating independently in the unit withdrawal sx increase PO fluids continue to detox
[2018-07-03] MEDS ORDERED: METHADONE HCL 10 MG TABLET (FOR DETOX USE ONLY) PO ONE (10:00)
[2018-07-03] MEDS: NICOTINE POLACRILEX 4 MG GUM BC PRN ×2 (10:19→15:50)
[2018-07-03] MEDS: METOPROLOL TARTRATE 50 MG TABLET (FP) PO SCH ×2 (10:22→22:13)
[2018-07-03] MEDS: PRENATAL VITAMINS W/ FOLIC ACID TABLET (FP) PO SCH (10:22)
[2018-07-03] MEDS: PARoxetine HCL 20 MG TABLET (FP) PO SCH (10:22)
[2018-07-03] MEDS: NICOTINE 21 MG/24 HOURS TOPICAL PATCH TD SCH (10:22)
[2018-07-03] MEDS: MAGNESIUM HYDROX 2400MG/30ML ORAL SUSPENSION 30 ML CUP PO PRN (11:34)
[2018-07-03] MEDS: THIAMINE HCL 100 MG TABLET (FP) PO SCH (22:13)
[2018-07-03] MEDS: ZOLPIDEM TARTRATE 10 MG TABLET (PARK CARE ONLY) PO PRN (22:14)
[2018-07-04 05:47] VITALS: PULSE 53
[2018-07-04] MEDS ORDERED: METHADONE HCL 5 MG TABLET (FOR DETOX USE ONLY) PO ONE (06:00)
--- NOTE | 2018-07-04 09:02 | DS ---
[facility] Detox Discharge Summary Admission Date: 06/29/18 Discharge Date: 07/04/18 - History Present History: Cannabis Dependence, Opioid Dependence - Physical Exam Results Vital Signs: Vital Signs Temperature 97.9 F 07/04/18 05:46 Pulse Rate 53 L 07/04/18 05:46 Respiratory Rate 18 07/04/18 05:46 Blood Pressure 117/60 07/04/18 05:46 O2 Sat by Pulse Oximetry (%) - Treatment Hospital Course: Detox Protocol Followed, Detoxed Safely, Responded well, Discharged Condition Good, Rehab Referral Accepted - Medication Discharge Medications: Ambulatory Orders Metoprolol Tartrate [Lopressor -] 50 mg PO BID 01/12/18 clonazePAM [Klonopin -] 1 mg PO TID 01/12/18 Paroxetine HCl [Paxil -] 40 mg PO DAILY 03/27/18 - Diagnosis (1) Drug-induced mood disorder Current Visit: Yes Status: Acute (2) Insomnia Current Visit: Yes Status: Acute (3) Opioid dependence with uncomplicated intoxication Current Visit: Yes Status: Chronic (4) Opioid dependence with withdrawal Current Visit: Yes Status: Acute (5) Track howard due to intravenous drug abuse Current Visit: Yes Status: Acute (6) Cannabis dependence, uncomplicated Current Visit: Yes Status: Chronic (7) Dental cavity Current Visit: Yes Status: Chronic (8) Hepatitis C Current Visit: Yes Status: Chronic Qualifiers: Viral hepatitis chronicity: carrier Qualified Code(s): B18.2 - Chronic viral hepatitis C (9) Hypertension Current Visit: Yes Status: Chronic Qualifiers: Hypertension type: essential hypertension Qualified Code(s): I10 - Essential (primary) hypertension (10) MDD (major depressive disorder) Current Visit: Yes Status: Chronic (11) Nicotine dependence, uncomplicated Current Visit: Yes Status: Chronic Qualifiers: Nicotine product type: cigarettes Qualified Code(s): F17.210 - Nicotine dependence, cigarettes, uncomplicated (12) Cellulitis Current Visit: No Status: Acute Qualifiers: Site of cellulitis: extremity Site of cellulitis of extremity: upper extremity Laterality: left Qualified Code(s): L03.114 - Cellulitis of left upper limb (13) Nicotine dependence Current Visit: No Status: Acute Qualifiers: Nicotine product type: cigarettes Substance use status: in withdrawal Qualified Code(s): F17.213 - Nicotine dependence, cigarettes, with withdrawal (14) Sedative, hypnotic or anxiolytic dependence with withdrawal, uncomplicated Current Visit: No Status: Acute (15) Toothache Current Visit: No Status: Acute - AMA Did Patient Leave Against Medical Advice: No
[2018-07-04 09:14] VITALS: BP 117/61; TEMP 98.2
== END 2018-07-04 08:59 | disposition home or self-care (01) | DRG 897 ==
LOC: YASAS 12:33 → Y6N 18:26
PROC: HZ2ZZZZ Detoxification Services for Substance Abuse Treatment (ICD-10-PCS; principal; 2018-06-29)
DX: F11.23 Opioid dependence with withdrawal (principal); F33.9 Major depressive disorder, recurrent, unspecified; L03.114 Cellulitis of left upper limb; F13.230 Sedative, hypnotic or anxiolytic dependence with withdrawal, uncomplicated; F12.20 Cannabis dependence, uncomplicated; F17.210 Nicotine dependence, cigarettes, uncomplicated; F31.9 Bipolar disorder, unspecified; F19.24 Other psychoactive substance dependence with psychoactive substance-induced mood disorder; G47.00 Insomnia, unspecified; B18.2 Chronic viral hepatitis C; I10 Essential (primary) hypertension; E78.00 Pure hypercholesterolemia, unspecified; K02.9 Dental caries, unspecified; Z86.69 Personal history of other diseases of the nervous system and sense organs
CPT/HCPCS: 36415; 80053; 81003; 85027; 86593; 90688; 93005; 93010; G0008

== ENCOUNTER 2018-12-07 00:56 | Emergency (ER) | payer OTHER ==
--- NOTE | 2018-12-07 01:17 | PDOC ---
History of Present Illness - General Stated Complaint: OVERDOSE Time Seen by Provider: 12/07/18 01:01 - History of Present Illness Initial Comments: 12/07/18 01:09 48 yo M With h/o HTN, HCV, opioid dependence ( on Methadone), nicotine dependence BIBEMS unresponsive. Pt. noted by EMS to be unresponsive to verbal stimuli, with 6 respirations per minute, and pinpoint pupils. Patient found down on toilet. Administered 2 mg Naloxone with rapid improvement in symptoms. Report vitals wnl, and patient attempting to get off stretcher in route to hospital. Patient reports last IV heroin use yesterday (12/06/00) AM, and 50 mg of daily methadone maintenance this AM. Patient does not recall events prior to this morning. Last inpt detox ( 06/29/18) Patient denies SI, HI, hallucinations,MANCINI, vision change, palpitations, cough, wheezing, orthopena, PND, leg swelling/pain, N/V, F,C, CP, SOB, urinary complaints, hematuria, BPR, abdominal pain, diarrhea, constipation, lightheadedness, weakness, sensory changes. PMHx: as noted above ROS: as noted SHx: Daily Heroin use, and tobacco. Recreational marijuanna. Allergies: NKDA Past History - Past Medical History Allergies/Adverse Reactions: Allergies Allergy/AdvReac Type Severity Reaction Status Date / Time No Known Allergies Allergy Verified 12/07/18 01:49 Home Medications: Ambulatory Orders Metoprolol Tartrate [Lopressor -] 50 mg PO BID 01/12/18 clonazePAM [Klonopin -] 1 mg PO TID 01/12/18 Paroxetine HCl [Paxil -] 40 mg PO DAILY 03/27/18 Anemia: No Asthma: No Cancer: No Cardiac Disorders: No CVA: No COPD: No CHF: No Dementia: No Diabetes: No GI Disorders: No Disorders: No HTN: Yes (On [place]) Hypercholesterolemia: Yes (Borderline - Not on meds) Kidney Stones: No Liver Disease: No Seizures: Yes ("Years ago") Thyroid Disease: No - Surgical History Abdominal Surgery: No Appendectomy: No Cardiac Surgery: No Cholecystectomy: No Lung Surgery: No Neurologic Surgery: No Orthopedic Surgery: No - Reproductive History Testicular Surgery: No - Suicide/Smoking/Psychosocial Hx Smoking History: Current every day smoker Have you smoked in the past 12 months: Yes Number of Cigarettes Smoked Daily: 20 Cigars Per Day: 0 'Breaking Loose' booklet given: 06/29/18 Hx Alcohol Use: No Drug/Substance Use Hx: Yes Substance Use Type: Cocaine, Heroin, Marijuana Hx Substance Use Treatment: Yes Review of Systems - Review of Systems Comments:: 12/07/18 01:25 GENERAL/CONSTITUTIONAL: No fever or chills. No weakness. HEAD, EYES, EARS, NOSE AND THROAT: No change in vision. No ear pain or discharge. No sore throat. CARDIOVASCULAR: No chest pain or shortness of breath RESPIRATORY: No cough, wheezing, or hemoptysis. GASTROINTESTINAL: No nausea, vomiting, diarrhea or constipation. GENITOURINARY: No dysuria, frequency, or change in urination. MUSCULOSKELETAL: No joint or muscle swelling or pain. No neck or back pain. SKIN: No rash NEUROLOGIC: No headache, vertigo, loss of consciousness, or change in strength/ sensation. ENDOCRINE: No increased thirst. No abnormal weight change HEMATOLOGIC/LYMPHATIC: No anemia, easy bleeding, or history of blood clots. ALLERGIC/IMMUNOLOGIC: No hives or skin allergy. *Physical Exam - Physical Exam Comments: 12/07/18 01:25 GENERAL: Awake, alert, and fully oriented, in no acute distress. Somnolent on exam. HEAD: No signs of trauma, normocephalic, atraumatic EYES: Pupils 4-5 mm, PERRLA, EOMI, sclera anicteric, conjunctiva clear ENT: Auricles normal inspection, hearing grossly normal, nares patent, oropharynx clear without exudates. Moist mucosa NECK: Normal ROM, supple, no lymphadenopathy, JVD, or masses LUNGS: No distress, speaks full sentences, clear to auscultation bilaterally HEART: Regular rate and rhythm, normal S1 and S2, no murmurs, rubs or gallops, peripheral pulses normal and equal bilaterally. ABDOMEN: Soft, nontender, normoactive bowel sounds. No guarding, no rebound. No masses EXTREMITIES : Normal inspection, Normal range of motion, no edema. No clubbing or cyanosis. NEUROLOGICAL: Cranial nerves II through XII grossly intact. Normal speech, normal gait, no focal sensorimotor deficits SKIN: Warm, Dry, normal turgor, no rashes or lesions noted Medical Decision Making - Medical Decision Making 12/07/18 01:17 48 yo M With h/o HTN, HCV, opioid dependence ( on Methadone), opioid overdose, nicotine dependence BIBEMS unresponsive, apneic with respiratory rate of 6, with pinpoint pupils. Received 2 mg IV Narcan, with rapid improvement in symptoms. Now here with suspected opioid overdose in setting of opoid use and respiratory depression, or seizures. GCS 15, A&Ox3, Physical exam currently unremarkable without miosis, resp distress, AMS, N/V, convulsions. No evidence of non cardiogenic pulm edema. Patient takes 50 mg Methadone daily. Last IV heroin use 12/06/00. Possible Methadone intox. vs. coignestants. D/t long half life of Methadone, will observe in ED and reassess. ED Course: UDS Patient refused UDS Patient refused detox/rehab Narcan 0.4 Patient remains nml resp effort, absent apnea or resp distress Up and ambulatory, HDS stable for d/c with return precautions. *DC/Admit/Observation/Transfer Diagnosis at time of Disposition: Opioid overdose Qualifiers: Encounter type: sequela Injury intent: undetermined intent Qualified Code(s): T40.2X4S - Poisoning by other opioids, undetermined, sequela - Discharge Dispostion Condition at time of disposition: Stable - Referrals Referrals: Mahogany Schmidt MD [Primary Care Provider] - - Patient Instructions Printed Discharge Instructions: DI for Opioid Addiction Additional Instructions: Please return to the emergency department with any new or worsening symptoms or concerns. Please follow up with your primary care physician within 72 hours. - Post Discharge Activity - Attestations Physician Attestion: 12/07/18 01:25 I attest to the information provided in this note.
[2018-12-07 01:49] VITALS: BMI 24.4
--- NOTE | 2018-12-07 01:56 | PDOC ---
Attending Attestation - Resident Resident Name: HumzaAndreyGuanaco - ED Attending Attestation I have performed the following: I have examined & evaluated the patient, The case was reviewed & discussed with the resident, I agree w/resident's findings & plan - HPI HPI: 12/07/18 06:15 Pt used heroin as usual, but family found him somnolent in the bathroom, and they called EMS. Pt was treated with 0.2narcan and he woke up and was brought to the ER. - Physicial Exam PE: 12/07/18 20:51 Agree with resident exam - Medical Decision Making 12/07/18 02:30 Pt is sleeping, but arousable. He is refusing to go to detox. 12/07/18 06:15 Pt slept comfortably in the ER all night with no SOB. We will give him 0.4mg narcan now, and he will be free to go home. Heart Score/ECG Review - ECG Intrepretation Rhythm: Regular Rhythm - [place]: Normal - P and KS Prominent R with upright T in V1 (true posterior DE): No Delta Wave(s) Present: No WPW: No - QRS Poor R Wave Progression: No Q Wave Present: No - ST and T Early Repolarization: No Non Specific ST-T Wave changes: No Flattened T Waves: No Prolonged Q-T Interval: No - ECG Impressions Normal ECG: Yes Non-specific ST Elevation: No Ischemic Changes: No Bradycardia: No Torsades patrick Pointes: No WPW: No
[2018-12-07] MEDS ORDERED: NALOXONE HCL 0.4 MG/ML VIAL IVPUSH ONE (06:09)
[2018-12-07] MEDS ORDERED: NALOXONE HCL 0.4 MG/ML VIAL ONE (06:15)
[2018-12-07 06:24] VITALS: BP 122/71; PULSE 66; TEMP 97.9
--- NOTE | 2018-12-09 13:51 | EKG ---
Test Reason : Blood Pressure : / mmHG Vent. Rate : 061 BPM Atrial Rate : 061 BPM P-R Int : 168 ms QRS Dur : 092 ms QT Int : 392 ms P-R-T Axes : 073 056 046 degrees QTc Int : 394 ms NORMAL SINUS RHYTHM NORMAL ECG WHEN COMPARED WITH ECG OF 29-JUN-2018 18:42, NO SIGNIFICANT CHANGE WAS FOUND Confirmed by MD Buck Daniel ([id number]) on 12/09/2018 1:51:15 PM Referred By: Confirmed By:Fredy Buck MD
--- NOTE | 2018-12-10 12:24 | EKG ---
Test Reason : Blood Pressure : / mmHG Vent. Rate : 077 BPM Atrial Rate : 077 BPM P-R Int : 148 ms QRS Dur : 090 ms QT Int : 354 ms P-R-T Axes : 059 095 017 degrees QTc Int : 400 ms NORMAL SINUS RHYTHM RIGHTWARD AXIS BORDERLINE ECG WHEN COMPARED WITH ECG OF 07-DEC-2018 02:08, NO SIGNIFICANT CHANGE WAS FOUND Confirmed by EMELI FAUST MD ([id number]) on 12/10/2018 12:24:21 PM Referred By: Confirmed By:EMELI FAUST MD
== END 2018-12-07 07:00 | disposition home or self-care (01) ==
LOC: JER 00:56
PROC: 3E033GC Introduction of Other Therapeutic Substance into Peripheral Vein, Percutaneous Approach (ICD-10-PCS; principal; 2018-12-07)
DX: T40.2X4A Poisoning by other opioids, undetermined, initial encounter (principal); F11.20 Opioid dependence, uncomplicated; I10 Essential (primary) hypertension; E78.00 Pure hypercholesterolemia, unspecified; Z86.69 Personal history of other diseases of the nervous system and sense organs; F17.210 Nicotine dependence, cigarettes, uncomplicated
CPT/HCPCS: 93005; 93010; 96374; 99282-25

== ENCOUNTER 2021-03-09 13:10 | Inpatient (IN) | payer OTHER ==
[2021-03-09 14:26] VITALS: BMI 28.2
[2021-03-09] MEDS ORDERED: MAGNESIUM HYDROX 2400MG/30ML ORAL SUSPENSION 30 ML CUP PO PRN (15:51)
[2021-03-09] MEDS ORDERED: MAG HYDROX/AL HYDROX/SIMETH 30 ML UNIT-DOSE CUP PO PRN (15:51)
[2021-03-09] MEDS ORDERED: IBUPROFEN 400 MG TABLET (FP) PO PRN (15:51)
[2021-03-09] MEDS ORDERED: ACETAMINOPHEN 325 MG TABLET (FP) PO PRN ×2 (15:51)
[2021-03-09] MEDS ORDERED: MAGNESIUM CITRATE 300 ML BOTTLE PO PRN (15:51)
[2021-03-09] MEDS ORDERED: METHOCARBAMOL 500 MG TABLET PO PRN (15:51)
[2021-03-09] MEDS ORDERED: METHADONE HCL 10 MG TABLET (FOR DETOX USE ONLY) PO ONE (15:51)
[2021-03-09] MEDS ORDERED: MENTHOL/PHENOL 1 EACH UD MM PRN (15:51)
[2021-03-09] MEDS ORDERED: cloNIDine HCL 0.1 MG TABLET PO PRN (15:51)
[2021-03-09] MEDS ORDERED: ONDANSETRON *ODT* 4 MG TABLET SL PRN (15:51)
[2021-03-09] MEDS ORDERED: BISMUTH SUBSALICYLATE 524 MG/30 ML PO PRN (15:51)
[2021-03-09] MEDS ORDERED: METOPROLOL TARTRATE 50 MG TABLET (FP) PO PRN (16:23)
[2021-03-09] MEDS: NICOTINE 21 MG/24 HOURS TOPICAL PATCH TD SCH (18:10)
[2021-03-09] MEDS: PRENATAL VITAMINS W/ FOLIC ACID TABLET (FP) PO SCH (18:11)
[2021-03-09] MEDS: diazePAM 5 MG TABLET PO SCH ×2 (18:11→22:28)
[2021-03-09] MEDS: hydrOXYzine PAMOATE 25 MG CAPSULE (FP) PO SCH ×2 (18:11→22:28)
[2021-03-09] MEDS ORDERED: MELATONIN 5 MG TABLETS PO SCH (22:00)
[2021-03-09] MEDS: THIAMINE HCL 100 MG TABLET (FP) PO SCH (22:28)
[2021-03-09] MEDS: NICOTINE POLACRILEX 2 MG GUM BUC PRN (22:29)
[2021-03-10] MEDS: hydrOXYzine PAMOATE 25 MG CAPSULE (FP) PO SCH (05:29)
[2021-03-10] MEDS: diazePAM 5 MG TABLET PO SCH ×4 (05:30→22:07)
[2021-03-10] MEDS ORDERED: METHADONE HCL 10 MG TABLET (FOR DETOX USE ONLY) ONE (09:00)
[2021-03-10] MEDS ORDERED: METHADONE HCL 5 MG TABLET (FOR DETOX USE ONLY) ONE (09:01)
[2021-03-10] MEDS ORDERED: hydrOXYzine PAMOATE 25 MG CAPSULE (FP) PO PRN (09:30)
[2021-03-10] MEDS ORDERED: METHADONE (DETOX) 20 MG, METHADONE (DETOX) 5 MG PO ONE (10:00)
[2021-03-10] MEDS: PRENATAL VITAMINS W/ FOLIC ACID TABLET (FP) PO SCH (10:14)
[2021-03-10] MEDS: PARoxetine HCL 10 MG TABLET PO SCH (10:15)
[2021-03-10] MEDS: NICOTINE 21 MG/24 HOURS TOPICAL PATCH TD SCH (10:18)
[2021-03-10 11:24] LABS: HEMATOCRIT 40.5 % (35.4-49); HEMOGLOBIN 13.6 GM/dL (11.7-16.9); MCHC 33.5 g/dl (32.0-35.9); MEAN CELL VOLUME 89.5 fl (80-96); MEAN PLT VOLUME 9.4 fl (7.5-11.1); PLATELET COUNT 169 K/MM3 (134-434); RBC 4.53 M/mm3 (4.00-5.60); RDW 13.7 % (11.9-15.9); WHITE BLOOD COUNT 6.2 K/mm3 (4.0-10.0)
[2021-03-10 11:56] LABS: ALBUMIN 3.3 g/dl (3.4-5.0); CALCIUM 9.3 mg/dL (8.5-10.1)
[2021-03-10 11:57] LABS: BLOOD UREA NITROGEN 13.9 mg/dL (7-18)
[2021-03-10 11:58] LABS: CREATININE 0.7 mg/dL (0.55-1.3)
[2021-03-10 12:01] LABS: BILIRUBIN,TOTAL 0.5 mg/dL (0.2-1)
[2021-03-10] MEDS: NICOTINE POLACRILEX 2 MG GUM BUC PRN (17:40)
[2021-03-10] MEDS: THIAMINE HCL 100 MG TABLET (FP) PO SCH (22:08)
[2021-03-10] MEDS: MELATONIN 5 MG TABLETS PO PRN (22:08)
[2021-03-11] MEDS: diazePAM 5 MG TABLET PO SCH ×3 (05:29→22:09)
[2021-03-11] MEDS ORDERED: METHADONE HCL 10 MG TABLET (FOR DETOX USE ONLY) PO ONE (10:00)
[2021-03-11] MEDS: NICOTINE 21 MG/24 HOURS TOPICAL PATCH TD SCH (10:27)
[2021-03-11] MEDS: PRENATAL VITAMINS W/ FOLIC ACID TABLET (FP) PO SCH (10:27)
[2021-03-11] MEDS: PARoxetine HCL 10 MG TABLET PO SCH (10:27)
[2021-03-11] MEDS: diazePAM 5 MG TABLET PO PRN ×2 (10:29→17:26)
[2021-03-11] MEDS ORDERED: MASKS NR ONE (10:54)
[2021-03-11] MEDS: NICOTINE POLACRILEX 2 MG GUM BUC PRN (17:25)
[2021-03-11] MEDS: THIAMINE HCL 100 MG TABLET (FP) PO SCH (22:09)
[2021-03-11] MEDS: MELATONIN 5 MG TABLETS PO PRN (22:09)
[2021-03-12] MEDS: diazePAM 5 MG TABLET PO SCH ×2 (06:13→17:40)
[2021-03-12] MEDS ORDERED: METHADONE HCL 10 MG TABLET (FOR DETOX USE ONLY) ONE (09:10)
[2021-03-12] MEDS ORDERED: METHADONE HCL 5 MG TABLET (FOR DETOX USE ONLY) ONE (09:10)
[2021-03-12] MEDS ORDERED: METHADONE (DETOX) 10 MG, METHADONE (DETOX) 5 MG PO ONE (10:00)
[2021-03-12] MEDS: diazePAM 5 MG TABLET PO PRN ×2 (10:06→14:00)
[2021-03-12] MEDS: PARoxetine HCL 10 MG TABLET PO SCH (10:07)
[2021-03-12] MEDS: NICOTINE 21 MG/24 HOURS TOPICAL PATCH TD SCH (10:07)
[2021-03-12] MEDS: PRENATAL VITAMINS W/ FOLIC ACID TABLET (FP) PO SCH (10:09)
[2021-03-12] MEDS: THIAMINE HCL 100 MG TABLET (FP) PO SCH (22:41)
[2021-03-13] MEDS ORDERED: diazePAM 5 MG TABLET PO ONE (06:00)
[2021-03-13 09:12] VITALS: BP 149/96; PULSE 68; TEMP 97.1
[2021-03-13] MEDS: PRENATAL VITAMINS W/ FOLIC ACID TABLET (FP) PO SCH (09:26)
[2021-03-13] MEDS: PARoxetine HCL 10 MG TABLET PO SCH (09:26)
[2021-03-13] MEDS: NICOTINE 21 MG/24 HOURS TOPICAL PATCH TD SCH (09:28)
[2021-03-13] MEDS ORDERED: METHADONE HCL 10 MG TABLET (FOR DETOX USE ONLY) PO ONE (10:00)
[2021-03-14] MEDS ORDERED: METHADONE HCL 5 MG TABLET (FOR DETOX USE ONLY) PO ONE (06:00)
== END 2021-03-13 09:48 | disposition home or self-care (01) | DRG 897 ==
LOC: YASAS 13:10 → Y3N 16:20 → MERGE 16:20
PROVIDERS: ADMIT Allergy & Immunology; ATTEND Allergy & Immunology
PROC: HZ2ZZZZ Detoxification Services for Substance Abuse Treatment (ICD-10-PCS; principal; 2021-03-09)
DX: F11.23 Opioid dependence with withdrawal (principal); F14.20 Cocaine dependence, uncomplicated; F13.20 Sedative, hypnotic or anxiolytic dependence, uncomplicated; F19.280 Other psychoactive substance dependence with psychoactive substance-induced anxiety disorder; F19.282 Other psychoactive substance dependence with psychoactive substance-induced sleep disorder; F12.20 Cannabis dependence, uncomplicated; F17.210 Nicotine dependence, cigarettes, uncomplicated; F31.9 Bipolar disorder, unspecified; F19.24 Other psychoactive substance dependence with psychoactive substance-induced mood disorder; F41.0 Panic disorder [episodic paroxysmal anxiety]; B18.2 Chronic viral hepatitis C; I10 Essential (primary) hypertension; Z88.2 Allergy status to sulfonamides; Z59.0 Homelessness
CPT/HCPCS: 36415; 80053; 85027; 86780; C9803; Q0162; U0003; U0005

== ENCOUNTER 2021-08-15 16:08 | Emergency (ER) | payer OTHER ==
[2021-08-15 16:25] VITALS: TEMP 98.2; BMI 27.0
[2021-08-15 19:42] LABS: BASO % 0.7 % (0-2.0); EOS % 0.8 % (0-4.5); HEMATOCRIT 48.5 % (35.4-49); LYMPH % 21.9 % (8-40); MCH 30.9 pg (25.7-33.7); MEAN CELL VOLUME 88.2 fl (80-96); MEAN PLT VOLUME 9.3 fl (7.5-11.1); MONO % 7.4 % (3.8-10.2); NEUT % 69.2 % (42.8-82.8); PLATELET COUNT 242 10^3/uL (134-434); RDW 13.8 % (11.9-15.9); WHITE BLOOD COUNT 11.8 K/mm3 (4.0-10.0)
[2021-08-15 19:54] LABS: INR 1.12 (0.83-1.09); PROTHROMBIN TIME (PATIENT) 13.1 SEC (9.7-13.0)
[2021-08-15 19:56] LABS: ACTIVATED PTT 31.9 SECONDS (25.2-36.5)
[2021-08-15 20:26] LABS: CHLORIDE 103 mmol/L (98-107); SODIUM 136 mmol/L (136-145)
[2021-08-15 20:28] LABS: CALCIUM 10.2 mg/dL (8.5-10.1)
[2021-08-15 20:29] LABS: ALBUMIN 4.7 g/dl (3.4-5.0); ANION GAP 6 MMOL/L (8-16); BLOOD UREA NITROGEN 10.8 mg/dL (7-18); CO2 27 mmol/L (21-32); GLUCOSE,RANDOM 108 mg/dL (74-106); MAGNESIUM 2.7 mg/dL (1.8-2.4)
[2021-08-15 20:32] LABS: CREATININE 0.8 mg/dL (0.55-1.3); SGOT/AST 26 U/L (15-37); SGPT/ALT 45 U/L (13-61)
[2021-08-15 20:34] LABS: BILIRUBIN,TOTAL 0.9 mg/dL (0.2-1); TOT PROT 9.8 g/dl (6.4-8.2)
[2021-08-15 20:35] LABS: ALK PHOS 124 U/L (45-117)
[2021-08-15 21:15] VITALS: BP 157/89; PULSE 89
[2021-08-15] MEDS ORDERED: MECLIZINE HCL 25 MG TABLET (FP) PO ONE (21:53)
[2021-08-15] MEDS ORDERED: MECLIZINE HCL 25 MG TABLET (FP) ONE (22:06)
== END 2021-08-15 22:54 | disposition home or self-care (01) ==
LOC: JER 16:08
DX: R42 Dizziness and giddiness (principal); L03.116 Cellulitis of left lower limb; L02.416 Cutaneous abscess of left lower limb
CPT/HCPCS: 36415; 70450-TC; 71046-TC-FY; 80053; 82550; 83735; 84484; 85025; 85610; 85730; 93005; 93010; 99284-25

== ENCOUNTER 2021-09-12 14:17 | Emergency (ER) | payer OTHER ==
[2021-09-12 15:00] VITALS: BP 144/98; PULSE 59; TEMP 97.2; BMI 27.0
== END 2021-09-12 18:00 | disposition home or self-care (01) ==
LOC: JER 14:17
DX: H93.13 Tinnitus, bilateral (principal)
CPT/HCPCS: 99283-25

== ENCOUNTER 2021-11-03 14:15 | Inpatient (IN) | payer OTHER ==
[2021-11-03 16:56] VITALS: BMI 25.8
[2021-11-03] MEDS ORDERED: MENTHOL/PHENOL 1 EACH UD MM PRN (17:36)
[2021-11-03] MEDS ORDERED: IBUPROFEN 400 MG TABLET (FP) PO PRN (17:36)
[2021-11-03] MEDS ORDERED: cloNIDine HCL 0.1 MG TABLET PO PRN ×2 (17:36→17:44)
[2021-11-03] MEDS ORDERED: ACETAMINOPHEN 325 MG TABLET (FP) PO PRN (17:36)
[2021-11-03] MEDS ORDERED: MAG HYDROX/AL HYDROX/SIMETH 30 ML UNIT-DOSE CUP PO PRN (17:36)
[2021-11-03] MEDS ORDERED: MAGNESIUM CITRATE 300 ML BOTTLE PO PRN (17:36)
[2021-11-03] MEDS ORDERED: methaDONE HCL 10 MG TABLET (FOR DETOX USE ONLY) PO ONE ×2 (17:36→17:44)
[2021-11-03] MEDS ORDERED: ONDANSETRON *ODT* 4 MG TABLET SL PRN (17:36)
[2021-11-03] MEDS ORDERED: MAGNESIUM HYDROX 2400MG/30ML ORAL SUSPENSION 30 ML CUP PO PRN (17:36)
[2021-11-03] MEDS ORDERED: BISMUTH SUBSALICYLATE 524 MG/30 ML PO PRN (17:36)
[2021-11-03] MEDS ORDERED: hydrOXYzine PAMOATE 25 MG CAPSULE (FP) PO SCH (18:00)
[2021-11-03] MEDS ORDERED: hydrOXYzine PAMOATE 25 MG CAPSULE (FP) PO PRN (20:40)
[2021-11-03] MEDS: METOPROLOL TARTRATE 50 MG TABLET (FP) PO SCH (21:52)
[2021-11-03] MEDS: THIAMINE HCL 100 MG TABLET (FP) PO SCH (21:52)
[2021-11-03] MEDS: MELATONIN 5 MG TABLETS PO SCH (21:52)
[2021-11-03] MEDS ORDERED: METOPROLOL TARTRATE 50 MG TABLET (FP) PO SCH (22:00)
[2021-11-03] MEDS: diazePAM 5 MG TABLET PO PRN (22:00)
[2021-11-04] MEDS: diazePAM 5 MG TABLET PO PRN ×3 (05:28→22:46)
[2021-11-04] MEDS ORDERED: methaDONE HCL 10 MG TABLET (FOR DETOX USE ONLY) ONE (09:29)
[2021-11-04] MEDS: amLODIPine BESYLATE 10 MG TABLET (FP) PO SCH (10:56)
[2021-11-04] MEDS: LOSARTAN POTASSIUM 25 MG TABLET PO SCH (10:56)
[2021-11-04] MEDS: METOPROLOL TARTRATE 50 MG TABLET (FP) PO SCH ×2 (10:56→22:44)
[2021-11-04] MEDS: METHOCARBAMOL 500 MG TABLET PO PRN (10:56)
[2021-11-04] MEDS: hydrOXYzine PAMOATE 25 MG CAPSULE (FP) PO PRN ×2 (10:56→22:46)
[2021-11-04] MEDS: PRENATAL VITAMINS W/ FOLIC ACID TABLET (FP) PO SCH (10:56)
[2021-11-04] MEDS: BACITRACIN 0.9 GM PACKET TP SCH ×2 (10:57→22:43)
[2021-11-04] MEDS: NICOTINE 10 MG CARTRIDGE (INHALER) IH PRN (11:00)
[2021-11-04] MEDS: NICOTINE POLACRILEX 4 MG GUM BUC PRN ×3 (14:17→22:49)
[2021-11-04] MEDS: THIAMINE HCL 100 MG TABLET (FP) PO SCH (22:44)
[2021-11-04] MEDS: MELATONIN 5 MG TABLETS PO SCH (22:44)
[2021-11-05] MEDS: diazePAM 5 MG TABLET PO PRN ×2 (06:21→12:36)
[2021-11-05] MEDS ORDERED: methaDONE HCL 10 MG TABLET (FOR DETOX USE ONLY) PO ONE ×2 (10:00)
[2021-11-05] MEDS: amLODIPine BESYLATE 10 MG TABLET (FP) PO SCH (10:29)
[2021-11-05] MEDS: LOSARTAN POTASSIUM 25 MG TABLET PO SCH (10:29)
[2021-11-05] MEDS: METOPROLOL TARTRATE 50 MG TABLET (FP) PO SCH ×2 (10:30→22:31)
[2021-11-05] MEDS: BACITRACIN 0.9 GM PACKET TP SCH ×2 (10:31→22:33)
[2021-11-05] MEDS: PRENATAL VITAMINS W/ FOLIC ACID TABLET (FP) PO SCH (10:33)
[2021-11-05 12:05] LABS: HEMATOCRIT 44.9 % (35.4-49); HEMOGLOBIN 15.5 GM/dL (11.7-16.9); MCH 30.5 pg (25.7-33.7); MCHC 34.5 g/dl (32.0-35.9); MEAN CELL VOLUME 88.4 fl (80-96); MEAN PLT VOLUME 9.7 fl (7.5-11.1); PLATELET COUNT 188 10^3/uL (134-434); RBC 5.08 M/mm3 (4.00-5.60); RDW 13.3 % (11.9-15.9); WHITE BLOOD COUNT 6.1 K/mm3 (4.0-10.0)
[2021-11-05 12:12] LABS: CALCIUM 9.7 mg/dL (8.5-10.1)
[2021-11-05 12:13] LABS: ALBUMIN 3.9 g/dl (3.4-5.0); BLOOD UREA NITROGEN 10.1 mg/dL (7-18)
[2021-11-05 12:16] LABS: CREATININE 0.8 mg/dL (0.55-1.3)
[2021-11-05 12:18] LABS: BILIRUBIN,TOTAL 0.6 mg/dL (0.2-1); TOT PROT 7.9 g/dl (6.4-8.2)
[2021-11-05] MEDS: NICOTINE POLACRILEX 4 MG GUM BUC PRN ×2 (12:37→18:20)
[2021-11-05] MEDS: MELATONIN 5 MG TABLETS PO SCH (22:31)
[2021-11-05] MEDS: THIAMINE HCL 100 MG TABLET (FP) PO SCH (22:31)
[2021-11-06] MEDS: METOPROLOL TARTRATE 50 MG TABLET (FP) PO SCH ×3 (00:45→22:18)
[2021-11-06] MEDS ORDERED: methaDONE HCL 10 MG TABLET (FOR DETOX USE ONLY) ONE (09:35)
[2021-11-06] MEDS: hydrOXYzine PAMOATE 25 MG CAPSULE (FP) PO PRN ×3 (10:19→22:18)
[2021-11-06] MEDS: amLODIPine BESYLATE 10 MG TABLET (FP) PO SCH (10:19)
[2021-11-06] MEDS: LOSARTAN POTASSIUM 25 MG TABLET PO SCH (10:20)
[2021-11-06] MEDS: PRENATAL VITAMINS W/ FOLIC ACID TABLET (FP) PO SCH (10:20)
[2021-11-06] MEDS: METHOCARBAMOL 500 MG TABLET PO PRN ×3 (10:20→22:18)
[2021-11-06] MEDS: BACITRACIN 0.9 GM PACKET TP SCH ×2 (10:22→22:18)
[2021-11-06] MEDS: ACETAMINOPHEN 325 MG TABLET (FP) PO PRN (12:01)
[2021-11-06] MEDS: NICOTINE POLACRILEX 4 MG GUM BUC PRN (14:07)
[2021-11-06] MEDS: MELATONIN 5 MG TABLETS PO SCH (22:18)
[2021-11-06] MEDS: NICOTINE 10 MG CARTRIDGE (INHALER) IH PRN (22:18)
[2021-11-06] MEDS: THIAMINE HCL 100 MG TABLET (FP) PO SCH (22:18)
[2021-11-07] MEDS ORDERED: methaDONE HCL 10 MG TABLET (FOR DETOX USE ONLY) PO ONE ×2 (10:00)
[2021-11-07] MEDS: METOPROLOL TARTRATE 50 MG TABLET (FP) PO SCH ×2 (10:12→22:30)
[2021-11-07] MEDS: BACITRACIN 0.9 GM PACKET TP SCH ×2 (10:12→22:30)
[2021-11-07] MEDS: ACETAMINOPHEN 325 MG TABLET (FP) PO PRN ×2 (10:14→17:09)
[2021-11-07] MEDS: LOSARTAN POTASSIUM 25 MG TABLET PO SCH (10:15)
[2021-11-07] MEDS: PRENATAL VITAMINS W/ FOLIC ACID TABLET (FP) PO SCH (10:16)
[2021-11-07] MEDS: amLODIPine BESYLATE 10 MG TABLET (FP) PO SCH (10:16)
[2021-11-07] MEDS: NICOTINE POLACRILEX 4 MG GUM BUC PRN ×2 (15:39→22:32)
[2021-11-07] MEDS: METHOCARBAMOL 500 MG TABLET PO PRN (17:09)
[2021-11-07] MEDS: MELATONIN 5 MG TABLETS PO SCH (22:30)
[2021-11-07] MEDS: THIAMINE HCL 100 MG TABLET (FP) PO SCH (22:30)
[2021-11-07] MEDS: hydrOXYzine PAMOATE 25 MG CAPSULE (FP) PO PRN (22:31)
[2021-11-08 09:26] VITALS: BP 138/84; PULSE 55; TEMP 97.5
== END 2021-11-08 11:48 | disposition home or self-care (01) | DRG 897 ==
LOC: YASAS 14:15 → Y6N 20:08
PROVIDERS: ADMIT Allergy & Immunology; ATTEND Allergy & Immunology
PROC: HZ2ZZZZ Detoxification Services for Substance Abuse Treatment (ICD-10-PCS; principal; 2021-11-03)
DX: F11.23 Opioid dependence with withdrawal (principal); F19.280 Other psychoactive substance dependence with psychoactive substance-induced anxiety disorder; B17.2 Acute hepatitis E; F17.210 Nicotine dependence, cigarettes, uncomplicated; F19.24 Other psychoactive substance dependence with psychoactive substance-induced mood disorder; E87.5 Hyperkalemia; I10 Essential (primary) hypertension; Z88.2 Allergy status to sulfonamides
CPT/HCPCS: 36415; 80053; 84132; 85027; 86780; C9803; J0735; U0003; U0005